=== PATIENT | female | born 1945 | race Caucasian/White ===

== ENCOUNTER 2016-11-18 16:23 | Inpatient (IN) | payer OTHER ==
[~2016-11-18] VITALS: Ht 157.5 cm; Wt 71.3 kg
[2016-11-18] MEDS ORDERED: CHOL400C10 (16:38)
[2016-11-18] MEDS ORDERED: NITR-5 PO (16:38)
[2016-11-18] MEDS ORDERED: VNTHFA/IN INH (16:38)
[2016-11-18] MEDS ORDERED: CALC600T9 (16:38)
[2016-11-18] MEDS ORDERED: MULTTAB58 PO (16:38)
[2016-11-18 17:03] LABS: BASO % 0.7 %; BASO ABS # 0.05 K/uL (0-0.2); COMPLETE YES; EOS % 0.8 %; HEMATOCRIT 42.2 % (37-47); IG% 0.3 %; LYMPH % 22.8 %; LYMPH ABS # 1.66 K/uL (1.2-3.4); MEAN CELL VOLUME 87.9 fL (80-100); MEAN CORPUSCULAR HEMOGLOBIN 29.6 pg (25-34); MEAN CORPUSCULAR HGB CONC 33.6 g/dl (32-36); MEAN PLATELET VOLUME 9.8 fL (7.4-10.4); MONO % 7.6 %; NEUT % 67.8 %; PLATELET COUNT 273 K/uL (130-400); WHITE BLOOD COUNT 7.28 K/uL (4.8-10.8)
[2016-11-18 17:23] LABS: BUN/CREATININE RATIO 19.9 (10-20); CALCIUM 8.9 mg/dl (8.5-10.1); CREATININE 0.65 mg/dl (0.60-1.20); POTASSIUM 3.3 mmol/L (3.5-5.1)
--- NOTE | 2016-11-18 17:23 | DIAGNOSTIC IMAGING REPORT ---
CHEST ONE VIEW PORTABLE CLINICAL HISTORY: Shortness of breath. Ankle swelling. COMPARISON STUDY: No previous studies for comparison. FINDINGS: The heart is mildly enlarged. There is no overt failure. There is no lobar consolidation. Slight indistinctness left hemidiaphragm likely secondary to a combination of fat pad and atelectatic change.[ There are no significant pleural effusions. IMPRESSION: AP portable study. Mild cardiomegaly. Electronically signed by: Gianfranco Weller M.D. 11/18/2016 5:21 PM Dictated Date/Time: 11/18/2016 5:21 PM
[2016-11-18 17:38] LABS: CKMB/CK RATIO 4.4 (0-3.0); THYROID STIMULATING HORMONE 0.843 uIu/ml (0.300-4.500)
[2016-11-18] MEDS ORDERED: FUROSEMIDE 40 MG/4 ML VIAL IV STA (17:43)
[2016-11-18] MEDS ORDERED: ASPIRIN 81 MG CHEW PO STA (17:43)
[2016-11-18] MEDS ORDERED: NITROGLYCERIN OINT 2% 1GM PACKET EXT ONE (17:45)
[2016-11-18] MEDS ORDERED: ONDANSETRON INJ 2 MG/ML 2 ML VIAL IV PRN (19:00)
[2016-11-18] MEDS ORDERED: NITROGLYCERIN 0.4 MG SL PER TAB CHARGE SL PRN (19:00)
[2016-11-18] MEDS ORDERED: POTASSIUM CHLORIDE 10 MEQ TABCR PO STA (19:15)
[2016-11-18 19:32] LABS: URINE APPEARANCE CLEAR (CLEAR); URINE BILIRUBIN NEG (NEG); URINE COLOR YELLOW; URINE NITRITE NEG (NEG); URINE SPECIFIC GRAVITY 1.016 (1.000-1.030); UROBILINOGEN NEG (NEG)
[2016-11-18 19:33] LABS: MANUAL MICROSCOPIC REQUIRED? NO; REVIEW REQ? NO
--- NOTE | 2016-11-18 19:55 | EMERGENCY ROOM VISIT NOTE ---
History Report prepared by Quentin: Della Bourgeois Under the Supervision of: Dr. Eladio Jo M.D. First contact with patient: 16:33 Chief Complaint: ABNORMAL LABS Stated Complaint: ABNORMAL LABS, SWOLLEN ANKLES, TIRED, SOB History of Present Illness The patient is a 71 year old female who presents to the Emergency Room with complaints of abnormal lab work. She reports she recently had an echocardiogram and her ejection fracture was found to be very low at 10%. Her PCP, Dr. Sanford with [facility], became concerned about heart failure and referred her here to the ED today. The patient admits to swelling in her legs and increased shortness of breath and fatigue. She notes she was placed on an antibiotic this past Monday, 3 days ago, for a UTI. Pt denies LOC, headache, fevers, chills, diaphoresis, visual changes, neck pain, chest pain, nausea, vomiting, abdominal pain, back pain, melena, hematochezia, urinary symptoms, numbness, weakness, lymphadenopathy, rash, or other complaints. 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 A total of ten systems were reviewed and were otherwise negative. Past Medical & Surgical Medical Problems: (1) Asthma (2) Elevated troponin I level (3) SOB (shortness of breath) Social History Smoking Status: Former Smoker Alcohol Use: occasionally Drug Use: none Marital Status: Housing Status: lives with family Occupation Status: retired Current/Historical Medications Scheduled Albuterol Hfa (Ventolin Hfa), 2-4 PUFFS INH Q6H Multiple Vitamin (Multivitamin), 1 TAB PO DAILY Nitrofurantoin Monohyd Macrocr (Macrobid), 100 MG PO BID Miscellaneous Medications Calcium Carbonate-Vitamin D (Calcium + D) Cholecalciferol (Vitamin D 400) Allergies Coded Allergies: No Known Allergies (Unverified , 11/18/16) Physical Exam Vital Signs Date Time Temp Pulse Resp B/P (MAP) Pulse Ox O2 Delivery O2 Flow Rate FiO2 11/18/16 19:45 101 22 143/103 96 Room Air 11/18/16 19:08 111 20 136/103 92 Room Air 11/18/16 18:20 101 16 137/100 94 Room Air 11/18/16 18:05 102 22 134/102 94 Room Air 11/18/16 17:29 102 11/18/16 17:15 100 18 135/86 93 Room Air 11/18/16 16:51 96 Room Air 11/18/16 16:27 36.3 114 17 148/103 96 Room Air Physical Exam GENERAL: Awake, alert, well-appearing, in no distress HENT: Normocephalic, atraumatic. Oropharynx unremarkable. EYES: Normal conjunctiva. Sclera non-icteric. NECK: Supple. No nuchal rigidity. FROM. No JVD. RESPIRATORY: Clear to auscultation. CARDIAC: Tachycardic heart rate, normal rhythm. Extremities warm and well perfused. Pulses equal. ABDOMEN: Soft, non-distended. No tenderness to palpation. No rebound or guarding. No masses. RECTAL: Deferred. MUSCULOSKELETAL: Chest examination reveals no tenderness. The back is symmetrical on inspection without obvious abnormality. There is no CVA tenderness to palpation. No joint edema. LOWER EXTREMITIES: Calves are equal size bilaterally and non-tender. 1+ pedal edema in bilateral lower extremities. No discoloration. NEURO: Normal sensorium. No sensory or motor deficits noted. SKIN: No rash or jaundice noted. Medical Decision & Procedures ER Provider Diagnostic Interpretation: Radiology results as stated below per my review and radiologist interpretation: CHEST ONE VIEW PORTABLE CLINICAL HISTORY: Shortness of breath. Ankle swelling. COMPARISON STUDY: No previous studies for comparison. FINDINGS: The heart is mildly enlarged. There is no overt failure. There is no lobar consolidation. Slight indistinctness left hemidiaphragm likely secondary to a combination of fat pad and atelectatic change. There are no significant pleural effusions. IMPRESSION: AP portable study. Mild cardiomegaly. Electronically signed by: Gianfranco Weller M.D. 11/18/2016 5:21 PM Laboratory Results 11/18/16 16:47 Red Blood Count 4.80, Mean Corpuscular Volume 87.9, Mean Corpuscular Hemoglobin 29.6, Mean Corpuscular Hemoglobin Concent 33.6, Mean Platelet Volume 9.8, Neutrophils (%) (Auto) 67.8, Lymphocytes (%) (Auto) 22.8, Monocytes (%) (Auto) 7.6, Eosinophils (%) (Auto) 0.8, Basophils (%) (Auto) 0.7, Neutrophils # (Auto) 4.94, Lymphocytes # (Auto) 1.66, Monocytes # (Auto) 0.55, Eosinophils # (Auto) 0.06, Basophils # (Auto) 0.05 11/18/16 16:47 Test 11/18/16 16:47 11/18/16 19:10 White Blood Count 7.28 K/uL (4.8-10.8) Red Blood Count 4.80 M/uL (4.2-5.4) Hemoglobin 14.2 g/dL (12.0-16.0) Hematocrit 42.2 % (37-47) Mean Corpuscular Volume 87.9 fL (80-100) Mean Corpuscular Hemoglobin 29.6 pg (25-34) Mean Corpuscular Hemoglobin Concent 33.6 g/dl (32-36) Platelet Count 273 K/uL (130-400) Mean Platelet Volume 9.8 fL (7.4-10.4) Neutrophils (%) (Auto) 67.8 % Lymphocytes (%) (Auto) 22.8 % Monocytes (%) (Auto) 7.6 % Eosinophils (%) (Auto) 0.8 % Basophils (%) (Auto) 0.7 % Neutrophils # (Auto) 4.94 K/uL (1.4-6.5) Lymphocytes # (Auto) 1.66 K/uL (1.2-3.4) Monocytes # (Auto) 0.55 K/uL (0.11-0.59) Eosinophils # (Auto) 0.06 K/uL (0-0.5) Basophils # (Auto) 0.05 K/uL (0-0.2) RDW Standard Deviation 45.2 fL (36.4-46.3) RDW Coefficient of Variation 14.1 % (11.5-14.5) Immature Granulocyte % (Auto) 0.3 % Immature Granulocyte # (Auto) 0.02 K/uL (0.00-0.02) Anion Gap 8.0 mmol/L (3-11) Est Creatinine Clear Calc Drug Dose 75.1 ml/min Estimated GFR () 103.5 Estimated GFR (Non- 89.3 BUN/Creatinine Ratio 19.9 (10-20) Calcium Level 8.9 mg/dl (8.5-10.1) Total Bilirubin 0.5 mg/dl (0.2-1) Aspartate Amino Transf (AST/SGOT) 16 U/L (15-37) Alanine Aminotransferase (ALT/SGPT) 27 U/L (12-78) Alkaline Phosphatase 88 U/L (45-117) Total Creatine Kinase 150 U/L (26-192) Creatine Kinase MB 6.6 ng/ml (0.5-3.6) Creatine Kinase MB Ratio 4.4 (0-3.0) Troponin I 0.131 ng/ml (0-0.045) Pro-B-Type Natriuretic Peptide 90242 pg/ml (0-900) Total Protein 6.7 gm/dl (6.4-8.2) Albumin 3.3 gm/dl (3.4-5.0) Globulin 3.4 gm/dl (2.5-4.0) Albumin/Globulin Ratio 1.0 (0.9-2) Thyroid Stimulating Hormone (TSH) 0.843 uIu/ml (0.300-4.500) Urine Color YELLOW Urine Appearance CLEAR (CLEAR) Urine pH 5.0 (4.5-7.5) Urine Specific [place] 1.016 (1.000-1.030) Urine Protein TRACE (NEG) Urine Glucose (UA) NEG (NEG) Urine Ketones NEG (NEG) Urine Occult Blood NEG (NEG) Urine Nitrite NEG (NEG) Urine Bilirubin NEG (NEG) Urine Urobilinogen NEG (NEG) Urine Leukocyte Esterase NEG (NEG) Urine WBC (Auto) 1-5 /hpf (0-5) Urine RBC (Auto) 0-4 /hpf (0-4) Urine Hyaline Casts (Auto) 1-5 /lpf (0-5) Urine Epithelial Cells (Auto) 10-20 /lpf (0-5) Urine Bacteria (Auto) NEG (NEG) Laboratory results reviewed by me Medications Administered Medications (Trade) Dose Ordered Sig/Juliana Route Start Time Stop Time Status Last Admin Dose Admin Nitroglycerin (Nitroglycerin 2% Oint) 0.5 inch NOW ONCE EXT 11/18/16 17:45 11/18/16 17:46 DC 11/18/16 18:07 0.5 INCH Furosemide (Lasix Inj) 20 mg NOW STAT IV 11/18/16 17:43 11/18/16 17:44 DC 11/18/16 18:07 20 MG Aspirin (Aspirin Chew) 324 mg NOW STAT PO 11/18/16 17:43 11/18/16 17:44 DC 11/18/16 18:07 324 MG Potassium Chloride (Klor-Con M10) 40 meq NOW STAT PO 11/18/16 19:15 11/18/16 19:16 DC 11/18/16 19:33 40 MEQ ECG Indication: SOB/dyspnea Rate (beats per minute): 103 Rhythm: sinus tachycardia Findings: nonspecific-ST abn, no acute ischemic change, left axis deviation ED Course 163: The patient was evaluated in room C7. A complete history and physical exam was performed. 174: Aspirin 324 mg PO, Lasix 20 mg IV. 1744: Nitroglycerin 2% 0.5 inch EXT. 1750: I reevaluated the patient. I discussed my recommendation she remain in the hospital for further evaluation and management and she verbalized complete understanding and agreement. 1755: I discussed the patients case with Annamarie [facility] PA-C, [facility]. The patient will be further evaluated. Medical Decision Triage Nursing notes reviewed. The patient's presentation and history were concerning for SOB. Etiologies such as CHF, cardiac ischemia, pneumonia, COPD, reactive airway disease, pulmonary embolism, pneumothorax, musculoskeletal, infections, gastrointestinal, as well as others were entertained. The patient was evaluated. She noted having recent outpatient echo that showed an EF of 10%. Laboratory testing was performed. Clinically she was doing relatively well except for mild tachycardia. The patient had an unremarkable CBC and chemistry panel. Her BNP is significantly elevated concerning for CHF. Chest x-ray as above. No skin was noted on ECG however the patient's cardiac markers were elevated. She was given aspirin, nitroglycerin, and Lasix. She was reassessed. She was educated. Consultation was made with internal medicine. The patient was evaluated in the Emergency Room and admitted for further management. Medication Reconcilliation Current Medication List: was personally reviewed by me Consults Time Called: 1751 Consulting Physician: Annamarie Stewart PA-C, [facility] Returned Call: 1755 I discussed the patients case with Annamarie Stewart PA-C, [facility]. The patient will be further evaluated. Impression Primary Impression: Acute CHF Additional Impression: Elevated troponin Scribe Attestation The scribe's documentation has been prepared under my direction and personally reviewed by me in its entirety. I confirm that the note above accurately reflects all work, treatment, procedures, and medical decision making performed by me. Departure Information Dispostion Being Evaluated By Hospitalist Referrals Kimani Sanford M.D. (PCP) Patient Instructions [facility] Problem Qualifiers
--- NOTE | 2016-11-18 20:14 | History and Physical ---
History & Physical Date & Time of Service: Nov 18, 2016 at 20:04 Chief Complaint: Abnormal Labs, Swollen Ankles, Tired, Sob Primary Care Physician: Kimani Sanford M.D. History of Present Illness Source: patient This is a 71yo with PMH of cardiomegaly, dyslipidemia and tobacco use disorder who presents from PCP for abnormal labwork and echo results. Patient was evaluated for SOB, fatigue and swollen ankles x 1 week. Had echo performed this morning and EF was reported to be very low at 10%. BNP elevated to 11,000. Per chart review, manufacturing quality technician reported the finding to patient's PCP and patient was told to come to the ER for further evaluation. Patient had a previous echo performed in Mar 2014 with an EF of 40% with mild LV dysfunction but was not started on medication or given a formal diagnosis of CHF. Denies history of heart disease, HTN, DM II. Endorses SOB at rest, ankle swelling and extreme fatigue. Denies lightheadedness , headache, CP, orthopnea, PND, abd pain, nausea/vomiting or weakness. Denies any weight gain in the past few weeks. Patient was seen this past Monday for dysuria and was diagnosed with a UTI. Has completed 4/7 days of PO Macrobid. Social History Smoking Status: Former Smoker (56 pack years. Quit last month. ) Alcohol Use: none Drug Use: none Marital Status: Occupational Status: retired Allergies Coded Allergies: No Known Allergies (Unverified , 11/18/16) Home Medications Scheduled Albuterol Hfa (Ventolin Hfa), 2-4 PUFFS INH Q6H Multiple Vitamin (Multivitamin), 1 TAB PO DAILY Nitrofurantoin Monohyd Macrocr (Macrobid), 100 MG PO BID Miscellaneous Medications Calcium Carbonate-Vitamin D (Calcium + D) Cholecalciferol (Vitamin D 400) Review of Systems Ten systems reviewed and negative except as noted in the HPI. Physical Exam Vital Signs Date Time Temp Pulse Resp B/P (MAP) Pulse Ox O2 Delivery O2 Flow Rate FiO2 11/18/16 19:45 101 22 143/103 96 Room Air 11/18/16 19:08 111 20 136/103 92 Room Air 11/18/16 18:20 101 16 137/100 94 Room Air 11/18/16 18:05 102 22 134/102 94 Room Air 11/18/16 17:29 102 11/18/16 17:15 100 18 135/86 93 Room Air 11/18/16 16:51 96 Room Air 11/18/16 16:27 36.3 114 17 148/103 96 Room Air General Appearance: WD/WN, no apparent distress Head: normocephalic, atraumatic Eyes: normal inspection, PERRL, sclerae normal ENT: hearing grossly normal Neck: supple, no adenopathy, no JVD, trachea midline Respiratory/Chest: chest non-tender, no respiratory distress, no accessory muscle use, + crackles (coarse breath sounds at bilateral bases) Cardiovascular: no murmur, normal peripheral pulses, + tachycardia Abdomen/GI: normal bowel sounds, non tender, soft, no organomegaly Back: normal inspection Extremities/Musculoskelatal: normal inspection, no calf tenderness, normal capillary refill, + swelling (2+ pedal/ankle edema bilaterally, trace pretibial edema bilaterally ) Neurologic/Psych: alert, normal mood/affect, normal reflexes Skin: normal color, warm/dry, no rash Diagnostics Laboratory Results Results Past 24 Hours Test 11/18/16 16:47 11/18/16 19:10 Range/Units White Blood Count 7.28 4.8-10.8 K/uL Red Blood Count 4.80 4.2-5.4 M/uL Hemoglobin 14.2 12.0-16.0 g/dL Hematocrit 42.2 37-47 % Mean Corpuscular Volume 87.9 80-100 fL Mean Corpuscular Hemoglobin 29.6 25-34 pg Mean Corpuscular Hemoglobin Concent 33.6 32-36 g/dl Platelet Count 273 130-400 K/uL Mean Platelet Volume 9.8 7.4-10.4 fL Neutrophils (%) (Auto) 67.8 % Lymphocytes (%) (Auto) 22.8 % Monocytes (%) (Auto) 7.6 % Eosinophils (%) (Auto) 0.8 % Basophils (%) (Auto) 0.7 % Neutrophils # (Auto) 4.94 1.4-6.5 K/uL Lymphocytes # (Auto) 1.66 1.2-3.4 K/uL Monocytes # (Auto) 0.55 0.11-0.59 K/uL Eosinophils # (Auto) 0.06 0-0.5 K/uL Basophils # (Auto) 0.05 0-0.2 K/uL RDW Standard Deviation 45.2 36.4-46.3 fL RDW Coefficient of Variation 14.1 11.5-14.5 % Immature Granulocyte % (Auto) 0.3 % Immature Granulocyte # (Auto) 0.02 0.00-0.02 K/uL Sodium Level 140 136-145 mmol/L Potassium Level 3.3 3.5-5.1 mmol/L Chloride Level 107 98-107 mmol/L Carbon Dioxide Level 25 21-32 mmol/L Anion Gap 8.0 3-11 mmol/L Blood Urea Nitrogen 13 7-18 mg/dl Creatinine 0.65 0.60-1.20 mg/dl Est Creatinine Clear Calc Drug Dose 75.1 ml/min Estimated GFR () 103.5 Estimated GFR (Non- 89.3 BUN/Creatinine Ratio 19.9 10-20 Random Glucose 116 70-99 mg/dl Calcium Level 8.9 8.5-10.1 mg/dl Total Bilirubin 0.5 0.2-1 mg/dl Aspartate Amino Transf (AST/SGOT) 16 15-37 U/L Alanine Aminotransferase (ALT/SGPT) 27 12-78 U/L Alkaline Phosphatase 88 45-117 U/L Total Creatine Kinase 150 26-192 U/L Creatine Kinase MB 6.6 0.5-3.6 ng/ml Creatine Kinase MB Ratio 4.4 0-3.0 Troponin I 0.131 0-0.045 ng/ml Pro-B-Type Natriuretic Peptide 33537 0-900 pg/ml Total Protein 6.7 6.4-8.2 gm/dl Albumin 3.3 3.4-5.0 gm/dl Globulin 3.4 2.5-4.0 gm/dl Albumin/Globulin Ratio 1.0 0.9-2 Thyroid Stimulating Hormone (TSH) 0.843 0.300-4.500 uIu/ml Urine Color YELLOW Urine Appearance CLEAR CLEAR Urine pH 5.0 4.5-7.5 Urine Specific [place] 1.016 1.000-1.030 Urine Protein TRACE NEG Urine Glucose (UA) NEG NEG Urine Ketones NEG NEG Urine Occult Blood NEG NEG Urine Nitrite NEG NEG Urine Bilirubin NEG NEG Urine Urobilinogen NEG NEG Urine Leukocyte Esterase NEG NEG Urine WBC (Auto) 1-5 0-5 /hpf Urine RBC (Auto) 0-4 0-4 /hpf Urine Hyaline Casts (Auto) 1-5 0-5 /lpf Urine Epithelial Cells (Auto) 10-20 0-5 /lpf Urine Bacteria (Auto) NEG NEG Diagnostic Radiology CXR: IMPRESSION: AP portable study. Mild cardiomegaly. EKG Sinus tachycardia Possible Left atrial enlargement poor R-wave progression in the precordial leads Nonspecific ST and T wave abnormality No prior EKG available Impression Assessment and Plan This is a 71yo with PMH of cardiomegaly, dyslipidemia and tobacco use disorder who presents from PCP for abnormal lab work and echo results. Decompensated new onset CHF: -SOB, fatigue and LE swelling x 1 week -No previous diagnosis of CHF on record, just cardiomegaly -Reported echo with EF of 10% today (report not yet available) -Mar 2014 echo with EF of 40%, mild LV dysfunction -BNP elevated to 11,000 -CXR with mild cardiomegaly, no overt heart failure -Given IV Lasix 20mg in ER. Continue IV Lasix BID -Start Lisinopril 2.5mg -Scheduled potassium chloride 10mEq BID with janet inhibitor, Lasix -Plan to start beta stephon once HF is compensated -Cardio consult placed. Appreciate recs -Daily weights, low Na diet HTN: -No former diagnosis -BP elevated to 148/103 on admission -Given 0.5 inch nitro paste, IV Lasix in ER -Started on Lisinopril 2.5mg daily; titrate accordingly -Monitor Elevated troponin: -No chest pain, unlikely ACS -Troponin I bumped to 0.131 -Given 324mg aspirin in ER -Continue trending cardiac markers -EKG with sinus tachycardia, possible L atrial enlargement, poor R-wave progression in precordial leads non-specific ST and T wave abnormality -No previous EKGs on record -Repeat EKG in AM -Monitor on tele HLD: -Previously diagnosed with HLD but not on statin -Fasting lipid panel in AM Hypokalemia: -K of 3.3 on admission -Replaced with 40mEq -Repeat BMP in AM UTI: -Symptoms have improved -On day 4/7 of Macrobid antibiotic -Continue antibiotic course DVT Ppx: Lovenox Code status: DNR as per discussion with patient and her PCP: [facility] Dispo: Plan to return home once medically stable Level of Care Telemetry Resuscitation Status DO NOT RESUSCITATE VTE Prophylaxis VTE Risk Assessment Done? Y/N: Yes Risk Level: Moderate Given or contraindicated: Enoxaparin (Lovenox)SQ Social Service Consult None Apply Note ATTENDING ADDENDUM Record reviewed. Patient interviewed and examined in ED. Care coordinated with Annamarie Stewart PA-C. Please refer to her documentation for patient's history. Briefly, 71 YO female with progressive dyspnea and lower extremity edema. Outpatient echo reportedly demonstrated LVEF 10%. Referred for further evaluation and management. EXAM: General- no acute distress VS- as noted HEENT- anicteric Neck- + JVD Lungs- bibasilar rales Heart- RRR, apical s3, no murmur appreciated Abdomen- + BS, soft, nontender Extremities- 1+ pretibial edema; no calf tenderness Neuro- alert, oriented DATA: BNP 11,530. CPK 150. CPK-MB 6.6. Troponin 0.131. TSH 0.843. Other lab studies as noted. Chest x-ray reviewed by undersigned and demonstrated cardiomegaly, mild pulmonary vascular congestion. EKG performed at 17:[address] at 103 / minute, poor R- wave progression, [id number]'s. . ASSESSMENT AND PLAN: New onset CHF- acute left ventricular systolic heart failure. LVEF reportedly 10% per outpatient echo (final report pending). Underlying pathophysiology to be determined. Received IV furosemide in ED which will be continued. Start low dose lisinopril. Start carvedilol. Consult Cardiology. Please refer to STEVE Stewart's documentation for discussion of other issues. Eladio Valente MD
[2016-11-18 21:00] VITALS: BP 147/93; PULSE 110; TEMP 36.7; O2SAT 95
[2016-11-18 21:04] VITALS: BP 147/93; PULSE 110; TEMP 36.7; O2SAT 95; Ht 157.5 cm; Wt 71.3 kg
[2016-11-18] MEDS: LISINOPRIL 2.5 MG TAB PO SCH (21:11)
[2016-11-18] MEDS: NITROFURANTOIN MONOHYDRATE 100 MG CAP PO SCH (21:11)
[2016-11-19] VITALS (7 sets, daily range): BP systolic 96–142; BP diastolic 62–90; PULSE 70–98; TEMP 36.7–37; O2SAT 90–96
[2016-11-19 06:10] LABS: HEMATOCRIT 41.3 % (37-47); MEAN CELL VOLUME 90.4 fL (80-100); MEAN CORPUSCULAR HEMOGLOBIN 28.9 pg (25-34); PLATELET COUNT 249 K/uL (130-400); RED BLOOD COUNT 4.57 M/uL (4.2-5.4); WHITE BLOOD COUNT 6.53 K/uL (4.8-10.8)
[2016-11-19 06:36] LABS: INR 1.1 (0.9-1.1); PROTHROMBIN TIME (PATIENT) 11.5 SECONDS (9.0-12.0)
[2016-11-19 06:39] LABS: BUN/CREATININE RATIO 19.5 (10-20); CALCIUM 8.8 mg/dl (8.5-10.1); CREATININE 0.65 mg/dl (0.60-1.20); POTASSIUM 3.5 mmol/L (3.5-5.1)
[2016-11-19 06:50] LABS: CKMB/CK RATIO 3.4 (0-3.0)
[2016-11-19] MEDS: LISINOPRIL 2.5 MG TAB PO SCH (08:23)
[2016-11-19] MEDS: NITROFURANTOIN MONOHYDRATE 100 MG CAP PO SCH ×2 (08:23→20:34)
[2016-11-19] MEDS: ASPIRIN 81 MG ECTAB PO SCH (08:23)
[2016-11-19] MEDS: MAGNESIUM SULFATE 1GM / D5W 1 GM in PREMIXED IN D5W 100 ML IV SCH ×2 (08:24→10:35)
[2016-11-19] MEDS: POTASSIUM CHLORIDE 10 MEQ TABCR PO SCH ×2 (08:24→20:34)
[2016-11-19] MEDS: POTASSIUM CHLR 10 MEQ / WTR 10 MEQ in PREMIXED WATER 100 ML IV SCH ×2 (08:25→10:35)
[2016-11-19] MEDS: CARVEDILOL 3.125 MG TAB PO SCH ×2 (08:26→20:33)
[2016-11-19] MEDS: ENOXAPARIN 40 MG/0.4 ML SYR SC SCH (08:26)
--- NOTE | 2016-11-19 08:26 | Progress Note ---
Subjective Date of Service: Nov 19, 2016. Subjective Pt evaluation today including: conversation w/ patient, physical exam, lab review, review of studies, review of inpatient medication list Saw/examined the patient in room 287 Presented to her primary care doctor due to dyspnea on exertion and edema of the bilateral ankles had an echo done as an outpatient, noted to have LVEF of 10% Was sent here, had some diuretics and states she feels much better Breathing improved while at rest, ankle edema has subsided Denies chest pain; has had palpitations in the past, but none recently Problem List Medical Problems: (1) Acute CHF Status: Acute (2) Elevated troponin Status: Acute Review of Systems Constitutional: No fever, No chills Respiratory: + shortness of breath, + dyspnea on exertion (improving), No cough , No sputum, No wheezing, No dyspnea at rest, No hemoptysis Cardiac: + edema, No chest pain, No palpitations (intermittent, none recently) Abdomen: No pain, No nausea, No vomiting, No diarrhea Medications Current Inpatient Medications Medications (Trade) Dose Ordered Sig/Juliana Route Start Time Stop Time Status Last Admin Dose Admin Acetaminophen (Tylenol Tab) 650 mg Q4H PRN PO 11/18/16 19:00 12/18/16 18:59 Ondansetron HCl (Zofran Inj) 4 mg Q6H PRN IV 11/18/16 19:00 12/18/16 18:59 Nitroglycerin (Nitrostat Tab) 0.4 mg UD PRN SL 11/18/16 19:00 12/18/16 18:59 Aspirin (Ecotrin Tab) 81 mg QAM PO 11/19/16 09:00 12/19/16 08:59 11/19/16 08:23 81 MG Nitrofurantoin Macrocrystals (Macrobid Cap) 100 mg BID PO 11/18/16 21:00 11/23/16 20:59 11/19/16 08:23 100 MG Lisinopril (Zestril Tab) 2.5 mg QAM PO 11/18/16 19:15 12/18/16 19:14 11/19/16 08:23 2.5 MG Potassium Chloride (Klor-Con M10) 10 meq BID PO 11/19/16 09:00 12/19/16 08:59 11/19/16 08:24 10 MEQ Furosemide 20 mg/ Syringe 2 ml @ 4 mls/min BID@0900,1500 IV 11/19/16 09:00 12/19/16 08:59 11/19/16 08:27 4 MLS/MIN Enoxaparin Sodium (Lovenox Inj) 40 mg Q24H SC 11/19/16 09:00 12/19/16 08:59 Carvedilol (Coreg Tab) 3.125 mg BID PO 11/19/16 09:00 12/19/16 08:59 11/19/16 08:26 3.125 MG Potassium Chloride 10 meq/ Prmx 100 ml @ 100 mls/hr Q1H IV 11/19/16 08:00 11/19/16 09:59 11/19/16 08:25 100 MLS/HR Magnesium Sulfate 1 gm/Prmx 100 ml @ 100 mls/hr Q1H IV 11/19/16 08:00 11/19/16 09:59 11/19/16 08:24 100 MLS/HR Objective Vital Signs Date Time Temp Pulse Resp B/P (MAP) Pulse Ox O2 Delivery O2 Flow Rate FiO2 11/19/16 07:37 37.0 96 16 142/90 (107) 90 Room Air 11/19/16 04:42 36.9 98 20 125/82 (96) 95 Room Air 11/19/16 04:00 Room Air 11/19/16 00:00 Room Air 11/18/16 21:04 36.7 110 18 147/93 95 Room Air 11/18/16 21:00 36.7 110 18 147/93 (111) 95 Room Air 11/18/16 19:45 101 22 143/103 96 Room Air 11/18/16 19:08 111 20 136/103 92 Room Air 11/18/16 18:20 101 16 137/100 94 Room Air 11/18/16 18:05 102 22 134/102 94 Room Air 11/18/16 17:29 102 11/18/16 17:15 100 18 135/86 93 Room Air 11/18/16 16:51 96 Room Air 11/18/16 16:27 36.3 114 17 148/103 96 Room Air Physical Exam General Appearance: no apparent distress ENT: hearing grossly normal Respiratory/Chest: no respiratory distress, no accessory muscle use, + decreased breath sounds Cardiovascular: regular rate, rhythm, no murmur Extremities: + pedal edema (+1 pitting edema, b/l LE; around ankles), + pertinent finding Neurologic/Psychiatric: no motor/sensory deficits, alert, normal mood/affect Skin: normal color Lymphatic: no adenopathy Laboratory Results Last 24 Hours Test 11/18/16 16:47 11/18/16 19:10 11/19/16 05:34 11/19/16 07:38 White Blood Count 7.28 K/uL 6.53 K/uL Red Blood Count 4.80 M/uL 4.57 M/uL Hemoglobin 14.2 g/dL 13.2 g/dL Hematocrit 42.2 % 41.3 % Mean Corpuscular Volume 87.9 fL 90.4 fL Mean Corpuscular Hemoglobin 29.6 pg 28.9 pg Mean Corpuscular Hemoglobin Concent 33.6 g/dl 32.0 g/dl Platelet Count 273 K/uL 249 K/uL Mean Platelet Volume 9.8 fL 10.0 fL Neutrophils (%) (Auto) 67.8 % Lymphocytes (%) (Auto) 22.8 % Monocytes (%) (Auto) 7.6 % Eosinophils (%) (Auto) 0.8 % Basophils (%) (Auto) 0.7 % Neutrophils # (Auto) 4.94 K/uL Lymphocytes # (Auto) 1.66 K/uL Monocytes # (Auto) 0.55 K/uL Eosinophils # (Auto) 0.06 K/uL Basophils # (Auto) 0.05 K/uL RDW Standard Deviation 45.2 fL 46.9 fL RDW Coefficient of Variation 14.1 % 14.3 % Immature Granulocyte % (Auto) 0.3 % Immature Granulocyte # (Auto) 0.02 K/uL Sodium Level 140 mmol/L 142 mmol/L Potassium Level 3.3 mmol/L 3.5 mmol/L Chloride Level 107 mmol/L 105 mmol/L Carbon Dioxide Level 25 mmol/L 30 mmol/L Anion Gap 8.0 mmol/L 7.0 mmol/L Blood Urea Nitrogen 13 mg/dl 13 mg/dl Creatinine 0.65 mg/dl 0.65 mg/dl Est Creatinine Clear Calc Drug Dose 75.1 ml/min 75.1 ml/min Estimated GFR () 103.5 103.5 Estimated GFR (Non- 89.3 89.3 BUN/Creatinine Ratio 19.9 19.5 Random Glucose 116 mg/dl 100 mg/dl Calcium Level 8.9 mg/dl 8.8 mg/dl Total Bilirubin 0.5 mg/dl Aspartate Amino Transf (AST/SGOT) 16 U/L Alanine Aminotransferase (ALT/SGPT) 27 U/L Alkaline Phosphatase 88 U/L Total Creatine Kinase 150 U/L 88 U/L Creatine Kinase MB 6.6 ng/ml 3.0 ng/ml Creatine Kinase MB Ratio 4.4 3.4 Troponin I 0.131 ng/ml 0.110 ng/ml Pro-B-Type Natriuretic Peptide 83761 pg/ml Total Protein 6.7 gm/dl Albumin 3.3 gm/dl Globulin 3.4 gm/dl Albumin/Globulin Ratio 1.0 Thyroid Stimulating Hormone (TSH) 0.843 uIu/ml Urine Color YELLOW Urine Appearance CLEAR Urine pH 5.0 Urine Specific [place] 1.016 Urine Protein TRACE Urine Glucose (UA) NEG Urine Ketones NEG Urine Occult Blood NEG Urine Nitrite NEG Urine Bilirubin NEG Urine Urobilinogen NEG Urine Leukocyte Esterase NEG Urine WBC (Auto) 1-5 /hpf Urine RBC (Auto) 0-4 /hpf Urine Hyaline Casts (Auto) 1-5 /lpf Urine Epithelial Cells (Auto) 10-20 /lpf Urine Bacteria (Auto) NEG Prothrombin Time 11.5 SECONDS Prothromb Time International Ratio 1.1 Triglycerides Level 98 mg/dl Cholesterol Level 167 mg/dl HDL Cholesterol 24 mg/dl LDL Cholesterol, Calculated 123 mg/dl VLDL Cholesterol, Calculated 20 mg/dl Cholesterol/HDL Ratio 7.0 Assessment and Plan This is a 71 year old female with a PMH of hyperlipidemia - was sent over to the ER due to low LVEF ~ 10% noted on outpatient echocardiogram New Onset, Decompensated Acute Systolic CHF Idiopathic Cardiomyopathy +swelling of the b/l ankles, had echo done as an outpatient LVEF ~ 10% as outpatient BNP elevated > 11,000 started on IV Lasix 20mg BID, low dose lisinopril and b-stephon cardiology consult pending for further input patient is a DNR at this point Elevated BP without Diagnosis of HTN patient presented with elevated BP does not take any medications as outpatient started on BLAS-I, b-stephon due to systolic CHF Elevated Troponin this is more likely due to her significantly diminished LVEF of 10% trend enzymes, which are trending down continue aspirin and b-stephon Possible UTI as per outpatient records, had been on Macrobid, to be on this for four more days DVT ppx Lovenox DNR
[2016-11-19] MEDS: FUROSEMIDE INJ 20 MG in SYRINGE 0 ML IV SCH ×2 (08:27→15:34)
--- NOTE | 2016-11-19 12:42 | CARDIOLOGY CONSULTATION ---
DATE OF CONSULTATION: 11/19/2016 DATE OF CONSULTATION: 11/19/2016 This is a consultation for the hospitalist service. REASON FOR CONSULTATION: Abnormal echocardiogram. HISTORY OF PRESENT ILLNESS: This is a 71-year-old female who expresses minimal past medical history. She is actually on no chronic medications. She does smoke cigarettes but states she stopped last week. Over the course of the past week to 10 days she has noticed increased fatigue with activity and lower extremity edema. She had an outpatient echocardiogram completed at [facility]. This study is not available to me, but the medical record would indicate that the patient has a severe cardiomyopathy with an estimated left ventricular ejection fraction of 10%. Reviewing some of the medical records, there is an old echocardiogram that was obtained several years ago that indicated a left ventricular ejection fraction of between 40% and 50%. She has had no chest pain. She has no prior history of coronary artery disease or myocardial infarction. She has been admitted and started on diuretics as well as an BLAS inhibitor and carvedilol. She is ambulating on her own and has no current complaints. ALLERGIES: No known medical allergies. PAST MEDICAL HISTORY: Is per the history of chief complaint. SOCIAL HISTORY: The patient stopped smoking last week. She lives independently. FAMILY MEDICAL HISTORY: Noncontributory. REVIEW OF SYSTEMS: A 10-point review of systems is negative except for the history of chief complaint. PHYSICAL EXAMINATION: GENERAL: She is alert and oriented. VITAL SIGNS: Blood pressure is 100/60, pulse is regular at 80 beats per minute. She is currently in a sinus mechanism. She is afebrile. HEAD, EYES, EARS, NOSE, AND THROAT: She is normocephalic. Pupils are equal and reactive to light. Extraocular muscles are intact bilaterally. NECK: The neck veins are flat. Carotids have good upstrokes bilaterally without bruits. Thyroid is nonpalpable. RESPIRATORY: Breath sounds equal bilaterally and clear to auscultation. CARDIOVASCULAR: Heart has a regular rhythm. Normal S1, S2. No S3, S4. No cardiac rubs or murmurs. GASTROINTESTINAL: Abdomen is soft, nontender without organomegaly. EXTREMITIES: Free of edema, digit clubbing, or cyanosis. NEUROLOGIC: Grossly intact. SKIN: Warm to touch. LYMPH NODES: Negative to palpation. LABORATORY DATA: Hemoglobin is 13.2. Potassium is 3.5, creatinine is 0.65. Troponin is 0.11. Cholesterol total was 167. TSH is 0.8. Pronatriuretic peptide is 11,500. IMPRESSIONS: 1. Congestive heart failure. 2. Idiopathic cardiomyopathy. 3. Cigarette smoking. RECOMMENDATIONS: I have ordered an echocardiogram to be completed here. I need to review this study to make better judgements regarding this patient. She is currently on a good medical regimen which should be continued for now and I will have further recommendations following the above.
[2016-11-19] MEDS: ACETAMINOPHEN 325 MG TAB PO PRN (15:34)
[2016-11-20] VITALS: BP 93/61; PULSE 84; TEMP 36.6; O2SAT 92
[2016-11-20 04:00] VITALS: BP 126/83; PULSE 87; TEMP 36.7; O2SAT 92
[2016-11-20 08:00] VITALS: O2SAT 94
[2016-11-20] MEDS: FUROSEMIDE INJ 20 MG in SYRINGE 0 ML IV SCH ×2 (08:32→14:50)
[2016-11-20] MEDS: ENOXAPARIN 40 MG/0.4 ML SYR SC SCH (08:32)
[2016-11-20] MEDS: CARVEDILOL 3.125 MG TAB PO SCH ×2 (08:33→20:34)
[2016-11-20] MEDS: NITROFURANTOIN MONOHYDRATE 100 MG CAP PO SCH ×2 (08:33→20:33)
[2016-11-20] MEDS: ASPIRIN 81 MG ECTAB PO SCH (08:33)
[2016-11-20] MEDS: LISINOPRIL 2.5 MG TAB PO SCH (08:33)
[2016-11-20] MEDS: POTASSIUM CHLORIDE 10 MEQ TABCR PO SCH ×2 (08:34→20:34)
--- NOTE | 2016-11-20 09:25 | ECHOCARDIOGRAM REPORT ---
*NOTICE TO RECEIVING [employer] This information is strictly Confidential and protected under [place] law. [place] law prohibits you from making any further disclosure of this information unless further disclosure is expressly permitted by the written consent of the person to whom it pertains or is authorized by law. A general authorization for the release of medical or other information is not sufficient for this purpose. Hospital accepts no responsibility if the information is made available to any other person, INCLUDING THE PATIENT. Interpretation Summary * Name: BABAK KUHN Study Date: 11/20/2016 06:50 AM BP: 96/62 mmHg * Patient Location: .[facility]\S\N287\S\2 HR: 87 * : 1945 (M/d/yyyy) Gender: Female Height: 62 in * Age: 71 yrs Ethnicity: [place] Weight: 161 lb * Ordering Physician: Lucas Gilbert * Referring Physician: Nicolás Moe PA-C * Performed By: Orlando Alvarez RCS * * Reason For Study: Cardiomyopathy * BSA: 1.7 m2 * -- Conclusions -- * The left ventricle is severely dilated. * Left ventricular systolic function is severely reduced. * Ejection Fraction = <15%. * The right ventricle is severely dilated. * The right ventricular systolic function is severely reduced. * The left atrium is severely dilated. * The right atrium is severely dilated. * There is mild mitral regurgitation. * There is moderate tricuspid regurgitation. Procedure Details * A complete two-dimensional transthoracic echocardiogram was performed (2D, M-mode, Doppler and color flow Doppler). Left Ventricle * The left ventricle is severely dilated. * There is no thrombus. * There is moderate concentric left ventricular hypertrophy. * Ejection Fraction = <15%. * Left ventricular systolic function is severely reduced. Right Ventricle * The right ventricle is severely dilated. * The right ventricular systolic function is severely reduced. Atria * The left atrium is severely dilated. * The right atrium is severely dilated. * The interatrial septum is intact with no evidence for an atrial septal defect. Mitral Valve * The mitral valve leaflets appear thickened, but open well. * There is mild mitral regurgitation. Tricuspid Valve * The tricuspid valve anatomy is normal. * There is moderate tricuspid regurgitation. Aortic Valve * The aortic valve is tricuspid. The leaflet thickness if normal. There is no aortic stenosis, and no significant insufficiency. * No hemodynamically significant valvular aortic stenosis. * There is no significant aortic regurgitation. Pulmonic Valve * The pulmonic valve is not well seen, but is grossly normal. * Mild pulmonic valvular regurgitation. Great Vessels * The aortic root and proximal ascending aorta are normal sized. Pericardium/Pleural * There is no pericardial effusion. MMode 2D Measurements and Calculations IVSd 1.0 cm IVSs 1.2 cm LVIDd 6.3 cm LVIDs 5.9 cm LVPWd 10 cm LVPWs 1.2 cm IVS/LVPW 1.0 FS 5.5 % EDV(Teich) 200.4 ml ESV(Teich) 176.3 ml EF(Teich) 12.0 % EDV(cubed) 248.7 ml ESV(cubed) 210.2 ml EF(cubed) 15.5 % % IVS thick 15.4 % % LVPW thick 20.7 % LV mass(C)d 272.7 grams LV mass(C)dI 156.4 grams/m\S\2 LV mass(C)s 308.6 grams LV mass(C)sI 177.1 grams/m\S\2 SV(Teich) 24.1 ml SI(Teich) 13.8 ml/m\S\2 SV(cubed) 38.5 ml SI(cubed) 22.1 ml/m\S\2 Ao root diam 2.8 cm Ao root area 6.2 cm\S\2 ACS 1.4 cm LA dimension 4.8 cm LA/Ao 1.7 Doppler Measurements and Calculations MV E max ana 110.7 cm/sec MV A max ana 66.1 cm/sec MV E/A 1.7 MV P1/2t max ana 113.9 cm/sec MV P1/2t 95.4 msec MVA(P1/2t) 2.3 cm\S\2 MV dec slope 349.8 cm/sec\S\2 MV dec time 0.18 sec Ao V2 max 101.6 cm/sec Ao max PG 4.1 mmHg Ao max PG (full) 1.6 mmHg LV V1 max PG 2.5 mmHg LV V1 max 79.6 cm/sec PA V2 max 66.2 cm/sec PA max PG 1.8 mmHg PI max ana 255.2 cm/sec PI max PG 26.1 mmHg PI dec slope 519.5 cm/sec\S\2 PI P1/2t 143.9 msec TR max ana 247.2 cm/sec
[2016-11-20 09:40] VITALS: BP 126/87; PULSE 75; TEMP 36.4; O2SAT 94
--- NOTE | 2016-11-20 11:25 | Progress Note ---
Subjective Date of Service: Nov 20, 2016. Subjective Pt evaluation today including: conversation w/ patient, physical exam, lab review, review of studies, review of inpatient medication list Saw/examined the patient in room 287 She's doing well, no breathing issues, denies chest pain/palpitations No other issues to note Problem List Medical Problems: (1) Acute CHF Status: Acute (2) Elevated troponin Status: Acute Review of Systems Respiratory: No cough, No sputum, No wheezing, No shortness of breath, No dyspnea on exertion Cardiac: + edema, No chest pain, No palpitations Medications Current Inpatient Medications Medications (Trade) Dose Ordered Sig/Juliana Route Start Time Stop Time Status Last Admin Dose Admin Acetaminophen (Tylenol Tab) 650 mg Q4H PRN PO 11/18/16 19:00 12/18/16 18:59 11/19/16 15:34 650 MG Ondansetron HCl (Zofran Inj) 4 mg Q6H PRN IV 11/18/16 19:00 12/18/16 18:59 Nitroglycerin (Nitrostat Tab) 0.4 mg UD PRN SL 11/18/16 19:00 12/18/16 18:59 Aspirin (Ecotrin Tab) 81 mg QAM PO 11/19/16 09:00 12/19/16 08:59 11/20/16 08:33 81 MG Nitrofurantoin Macrocrystals (Macrobid Cap) 100 mg BID PO 11/18/16 21:00 11/23/16 20:59 11/20/16 08:33 100 MG Lisinopril (Zestril Tab) 2.5 mg QAM PO 11/18/16 19:15 12/18/16 19:14 11/20/16 08:33 2.5 MG Potassium Chloride (Klor-Con M10) 10 meq BID PO 11/19/16 09:00 12/19/16 08:59 11/20/16 08:34 10 MEQ Furosemide 20 mg/ Syringe 2 ml @ 4 mls/min BID@0900,1500 IV 11/19/16 09:00 12/19/16 08:59 11/20/16 08:32 4 MLS/MIN Enoxaparin Sodium (Lovenox Inj) 40 mg Q24H SC 11/19/16 09:00 12/19/16 08:59 Carvedilol (Coreg Tab) 3.125 mg BID PO 11/19/16 09:00 12/19/16 08:59 11/20/16 08:33 3.125 MG Objective Vital Signs Date Time Temp Pulse Resp B/P (MAP) Pulse Ox O2 Delivery O2 Flow Rate FiO2 11/20/16 09:40 36.4 75 18 126/87 (100) 94 Room Air 11/20/16 08:00 94 Room Air 11/20/16 04:00 Room Air 11/20/16 04:00 36.7 87 18 126/83 (97) 92 Room Air 11/20/16 00:00 Room Air 11/20/16 00:00 36.6 84 18 93/61 (72) 92 Room Air 11/19/16 20:00 Room Air 11/19/16 19:38 36.7 78 18 112/72 (85) 96 Room Air 11/19/16 16:00 Room Air 11/19/16 15:39 36.9 87 16 96/62 (73) 90 Room Air 11/19/16 15:39 36.8 70 18 101/70 (80) 95 Room Air 11/19/16 12:00 90 Room Air 11/19/16 11:37 36.9 87 16 96/62 (73) 91 Room Air Physical Exam General Appearance: no apparent distress Respiratory/Chest: chest non-tender, lungs clear, normal breath sounds, no respiratory distress, no accessory muscle use Cardiovascular: regular rate, rhythm, no murmur Extremities: + pertinent finding (trace edema) Assessment and Plan This is a 71 year old female with a PMH of hyperlipidemia - was sent over to the ER due to low LVEF ~ 10% noted on outpatient echocardiogram New Onset, Decompensated Acute Systolic CHF Idiopathic Cardiomyopathy 11/20 echo shows LVEF < 15% continue b-stephon, BLAS-I, Lasix appreciate cardiology input 11/19 +swelling of the b/l ankles, had echo done as an outpatient LVEF ~ 10% as outpatient BNP elevated > 11,000 started on IV Lasix 20mg BID, low dose lisinopril and b-stephon cardiology consult pending for further input patient is a DNR at this point Elevated BP without Diagnosis of HTN patient presented with elevated BP does not take any medications as outpatient started on BLAS-I, b-stephon due to systolic CHF Elevated Troponin this is more likely due to her significantly diminished LVEF of 10% trend enzymes, which are trending down continue aspirin and b-stephon Possible UTI as per outpatient records, had been on Macrobid, to be on this for four more days DVT ppx Lovenox DNR
[2016-11-20 12:00] VITALS: BP 124/80; PULSE 94; TEMP 36.8; O2SAT 94
[2016-11-20] MEDS ORDERED: LISINOPRIL 2.5 MG TAB PO ONE (13:30)
--- NOTE | 2016-11-20 13:51 | PROGRESS NOTE ---
DATE: 11/20/2016 FOLLOWUP VISIT SUBJECTIVE: The patient is a 71-year-old female who presented with idiopathic cardiomyopathy and severe LV dysfunction. Her cardiomyopathy may be due to undertreated hypertension. She also has a history of cigarette smoking. Her echocardiogram this admission shows an estimated left ventricular ejection fraction of around 10%. We have been diuresing and slowly titrating medications, like carvedilol and an BLAS inhibitor. She has no complaints today. She did present with abdominal bloating and lower extremity edema, which is improving with diuretic therapy. OBJECTIVE: GENERAL: She is alert and oriented in no acute distress. VITAL SIGNS: Blood pressure is 125/80, pulse is regular at 75 beats per minute. She is afebrile. HEENT: She wears corrective lenses. Mucous membranes are moist. NECK: The neck veins are flat. Carotids have good upstrokes bilaterally without bruits. Thyroid is nonpalpable. RESPIRATORY: Breath sounds equal bilaterally and clear to auscultation. CARDIOVASCULAR: Heart has a regular rhythm. Normal S1 and S2. No S3 or S4. No cardiac rubs or murmurs. GASTROINTESTINAL: Abdomen is soft and nontender without organomegaly. EXTREMITIES: Free of edema, digit clubbing, or cyanosis. NEUROLOGIC: Grossly intact. SKIN: Warm to touch. LYMPH NODES: Negative to palpation. LABORATORY DATA: Hemoglobin is 13.2. Creatinine is 0.65 and potassium is 3.5. IMPRESSION: 1. Idiopathic cardiomyopathy. 2. Severe left ventricular dysfunction with an estimated left ventricular ejection fraction of 10%. 3. Acute on chronic systolic heart failure. RECOMMENDATIONS: As outlined above, we are titrating her medications. The patient by her own desire is a level 5 resuscitation. She is not interested in heroic measures and would not consider an ICD. [facility]
[2016-11-20 19:46] VITALS: BP 100/71; PULSE 86; TEMP 36.5; O2SAT 93
[2016-11-21] VITALS (8 sets, daily range): BP systolic 96–124; BP diastolic 60–83; PULSE 62–89; TEMP 36.5–37; O2SAT 91–98
[2016-11-21 06:18] LABS: MEAN CELL VOLUME 90.3 fL (80-100); MEAN CORPUSCULAR HEMOGLOBIN 29.1 pg (25-34); MEAN CORPUSCULAR HGB CONC 32.2 g/dl (32-36); MEAN PLATELET VOLUME 9.8 fL (7.4-10.4); PLATELET COUNT 246 K/uL (130-400); RED BLOOD COUNT 4.54 M/uL (4.2-5.4); WHITE BLOOD COUNT 6.77 K/uL (4.8-10.8)
[2016-11-21 06:57] LABS: BUN/CREATININE RATIO 22.6 (10-20); CALCIUM 9.3 mg/dl (8.5-10.1); CREATININE 0.68 mg/dl (0.60-1.20); MAGNESIUM 2.1 mg/dl (1.8-2.4); POTASSIUM 4.2 mmol/L (3.5-5.1)
[2016-11-21] MEDS: NITROFURANTOIN MONOHYDRATE 100 MG CAP PO SCH ×2 (08:41→21:33)
[2016-11-21] MEDS: FUROSEMIDE INJ 20 MG in SYRINGE 0 ML IV SCH ×2 (08:41→15:10)
[2016-11-21] MEDS: CARVEDILOL 3.125 MG TAB PO SCH ×2 (08:42→21:35)
[2016-11-21] MEDS: LISINOPRIL 5 MG TAB PO SCH (08:42)
[2016-11-21] MEDS: ASPIRIN 81 MG ECTAB PO SCH (08:42)
[2016-11-21] MEDS: POTASSIUM CHLORIDE 10 MEQ TABCR PO SCH ×2 (08:42→22:03)
[2016-11-21] MEDS: ENOXAPARIN 40 MG/0.4 ML SYR SC SCH (08:43)
--- NOTE | 2016-11-21 10:17 | Cardiology Follow-Up ---
Subjective General Date of Service: Nov 21, 2016. Chief Complaint: Fatigue Pt evaluation today including: conversation w/ patient, physical exam, chart review, lab review, review of studies, review of inpatient medication list History of Present Illness Patient seen and examined. Admitted with new onset acute decompensated systolic heart failure secondary to a dilated cardiomyopathy of unknown etiology. Patient notes considerable improvement in exertional fatigue and dyspnea as well as peripheral edema since admission. She remains dyspneic when ambulating the hallway. No chest pain. No palpitations. Mild orthopnea without PND I/O's are NOT accurately recorded. Weight is down since admission. Telemetry: Short run of SVT at 09:40:24. Three beat VPC run at 23:27:47. No significant bradycardia or pauses. November 20, 2016 TTE Interpretation Summary ([facility], Dr. Gilbert): The left ventricle is severely dilated. Left ventricular systolic function is severely reduced. Ejection Fraction = <15%. The right ventricle is severely dilated. The right ventricular systolic function is severely reduced. The left atrium is severely dilated. The right atrium is severely dilated. There is mild mitral regurgitation. There is moderate tricuspid regurgitation. Allergies Coded Allergies: No Known Allergies (Unverified , 11/18/16) Social History Smoking Status: Former Smoker Hx Tobacco Use In Past Year?: Yes Hx Alcohol Use - Type And Amou: No Hx Substance Use - Type And Am: No Problem List Medical Problems: (1) Acute CHF Status: Acute (2) Elevated troponin Status: Acute Physical Exam Vital Signs Last Vital Signs Documentation Date Time Temp Pulse Resp B/P (MAP) Pulse Ox O2 Delivery O2 Flow Rate FiO2 11/21/16 07:27 36.7 86 18 124/83 (97) 92 Room Air 11/21/16 00:01 Physical Exam Constitutional: General Apperance: heathly-appearing Level of Distress: NAD Ambulation: ambulating normally Psychiatric: Mental Status: active & alert Orientation: to time, to place, to person Memory: recent memory normal, remote memory normal Head: normocephalic, atraumatic Eyes: Pupils: PERRLA Neck: pertinent finding (Mildly elevated JVP) Lungs: Respiratory effort: no dyspnea Auscultation: no wheezing, no rhonchi, deminished air movement, decreased breath sounds, rales/crackles on the left, rales/crackles on the right Cardiovascular: Heart Auscultation: RRR (86 bpm), no murmurs, no rubs, no gallops Peripheral Pulses: Dorsalis Pedis Pulse: absent on the left, absent on the right Abdomen: Bowel Sounds: normal Inspection & Palpation: soft, non-distended, no tenderness, guarding & rebound, no masses Extremities: no cyanosis, no clubbing, edema (Minimal edema), varicosities Neurologic: Cranial Nerves: grossly intact Assessment and Plan Assessment and Plan New onset acute decompensated systolic congestive heart failure Severe dilated cardiomyopathy of unknown etiology. Ejection Fraction 10% Narrow QRS duration, 96 ms NYHA Functional Capacity Class III, Objective Assessment C Volume status: Mildly hypervolemic. RECOMMENDATIONS/PLAN: Discontinue IV furosemide after the 2nd dose today. Start oral furosemide, 40 mg/day, in the AM of 11/22/16. Discontinue potassium chloride. Start spironolactone 12.5 mg/day Continue Carvedilol for now though patient may be better served with Toprol XL given observed heart rates and what appears to be underlying obstructive pulmonary disease from longstanding tobacco abuse. Consider changing Lisinopril to Entresto (Sacubitril 24 mg, valsartan 26 mg twice daily) down the road, as an outpatient, after washing out Lisinopril for 36 hours. Pharmacological stress testing versus diagnostic cardiac catheterization discussed. She is not interested in a wearable cardioverter-defibrillator She tells me today that she would consider primary prevention ICD implantation. This would be after three months of optimal medical therapy with documentation of persistent left ventricular ejection fraction less than or equal to 35 percent at that time. Further recommendations pending the above, evaluation by Dr. Pulliam, and her ongoing hospitalization. CARDIOLOGY ATTENDING ADDENDUM: The patient was seen and personally examined. Agree with Nicolás Moe PA-C's findings and plans as documented above With additions as noted below. Subjective: Patient states she's been having shortness of breath with climbing stairs at home, feels better in the hospital, but still with some shortness of breath while walking. Telemetry reveals short salvos of nonsustained ventricular tachycardia with several 3 beat runs. Physical examination: Cardiac risk irregular rate, no murmurs Extremities: No edema Impression: 71-year-old female, newly diagnosed severe dilated cardiomyopathy. Plan: Medication therapy as outlined above, patient agreeable to proceeding with definitive coronary angiography during this hospital stay. Will make her nothing by mouth after midnight and tentatively schedule the procedure for tomorrow with Dr. Chao Laboratory Results Last 24 Hours Test 11/21/16 05:56 White Blood Count 6.77 K/uL Red Blood Count 4.54 M/uL Hemoglobin 13.2 g/dL Hematocrit 41.0 % Mean Corpuscular Volume 90.3 fL Mean Corpuscular Hemoglobin 29.1 pg Mean Corpuscular Hemoglobin Concent 32.2 g/dl RDW Standard Deviation 46.7 fL RDW Coefficient of Variation 14.3 % Platelet Count 246 K/uL Mean Platelet Volume 9.8 fL Sodium Level 140 mmol/L Potassium Level 4.2 mmol/L Chloride Level 102 mmol/L Carbon Dioxide Level 32 mmol/L Anion Gap 6.0 mmol/L Blood Urea Nitrogen 15 mg/dl Creatinine 0.68 mg/dl Est Creatinine Clear Calc Drug Dose 71.5 ml/min Estimated GFR () 102.0 Estimated GFR (Non- 88.0 BUN/Creatinine Ratio 22.6 Random Glucose 107 mg/dl Calcium Level 9.3 mg/dl Magnesium Level 2.1 mg/dl
[2016-11-21] MEDS: NICOTINE 14 MG/24 HR TDSY TD SCH (11:28)
--- NOTE | 2016-11-21 11:58 | Progress Note ---
Subjective Date of Service: Nov 21, 2016. Subjective Pt evaluation today including: conversation w/ patient, physical exam, lab review, review of studies, review of inpatient medication list Saw/examined the patient in room 287 She is doing okay, no chest pain/shortness of breath Stated she needed a nicotine patch because she just quit smoking about one week prior to arrival Otherwise, doing well Problem List Medical Problems: (1) Acute CHF Status: Acute (2) Elevated troponin Status: Acute Review of Systems Constitutional: No fever, No chills Respiratory: No cough, No sputum, No shortness of breath Cardiac: No chest pain Medications Current Inpatient Medications Medications (Trade) Dose Ordered Sig/Juliana Route Start Time Stop Time Status Last Admin Dose Admin Acetaminophen (Tylenol Tab) 650 mg Q4H PRN PO 11/18/16 19:00 12/18/16 18:59 11/19/16 15:34 650 MG Ondansetron HCl (Zofran Inj) 4 mg Q6H PRN IV 11/18/16 19:00 12/18/16 18:59 Nitroglycerin (Nitrostat Tab) 0.4 mg UD PRN SL 11/18/16 19:00 12/18/16 18:59 Aspirin (Ecotrin Tab) 81 mg QAM PO 11/19/16 09:00 12/19/16 08:59 11/21/16 08:42 81 MG Nitrofurantoin Macrocrystals (Macrobid Cap) 100 mg BID PO 11/18/16 21:00 11/23/16 20:59 11/21/16 08:41 100 MG Potassium Chloride (Klor-Con M10) 10 meq BID PO 11/19/16 09:00 11/21/16 23:00 11/21/16 08:42 10 MEQ Furosemide 20 mg/ Syringe 2 ml @ 4 mls/min BID@0900,1500 IV 11/19/16 09:00 11/21/16 23:00 11/21/16 08:41 4 MLS/MIN Enoxaparin Sodium (Lovenox Inj) 40 mg Q24H SC 11/19/16 09:00 12/19/16 08:59 Carvedilol (Coreg Tab) 3.125 mg BID PO 11/19/16 09:00 12/19/16 08:59 11/21/16 08:42 3.125 MG Lisinopril (Zestril Tab) 5 mg QAM PO 11/21/16 09:00 12/21/16 08:59 11/21/16 08:42 5 MG Nicotine (Nicoderm Cq 14MG Patch) 1 patch QAM TD 11/22/16 09:00 12/22/16 08:59 11/21/16 11:28 1 PATCH Miscellaneous (Remove Nicoderm Patch) 1 ea HS N/A 11/21/16 21:00 12/21/16 20:59 Furosemide (Lasix Tab) 40 mg QAM PO 11/22/16 09:00 12/22/16 08:59 UNV Spironolactone (Aldactone Tab) 12.5 mg QAM PO 11/22/16 09:00 12/22/16 08:59 UNV Objective Vital Signs Date Time Temp Pulse Resp B/P (MAP) Pulse Ox O2 Delivery O2 Flow Rate FiO2 11/21/16 11:34 36.5 62 18 104/73 (83) 98 11/21/16 08:00 92 Room Air 11/21/16 07:27 36.7 86 18 124/83 (97) 92 Room Air 11/21/16 04:00 Room Air 11/21/16 04:00 36.6 88 18 118/77 (91) 95 Room Air 11/21/16 00:01 Room Air 11/21/16 00:01 36.8 86 18 100/68 (79) 96 Room Air 11/20/16 20:00 Room Air 11/20/16 19:46 36.5 86 18 100/71 (81) 93 Room Air 11/20/16 16:00 Room Air 11/20/16 12:00 94 Room Air 11/20/16 12:00 36.8 94 20 124/80 (95) 94 Room Air Physical Exam General Appearance: no apparent distress Respiratory/Chest: lungs clear, normal breath sounds, no respiratory distress, no accessory muscle use Cardiovascular: regular rate, rhythm, no edema, no murmur Laboratory Results Last 24 Hours Test 11/21/16 05:56 White Blood Count 6.77 K/uL Red Blood Count 4.54 M/uL Hemoglobin 13.2 g/dL Hematocrit 41.0 % Mean Corpuscular Volume 90.3 fL Mean Corpuscular Hemoglobin 29.1 pg Mean Corpuscular Hemoglobin Concent 32.2 g/dl RDW Standard Deviation 46.7 fL RDW Coefficient of Variation 14.3 % Platelet Count 246 K/uL Mean Platelet Volume 9.8 fL Sodium Level 140 mmol/L Potassium Level 4.2 mmol/L Chloride Level 102 mmol/L Carbon Dioxide Level 32 mmol/L Anion Gap 6.0 mmol/L Blood Urea Nitrogen 15 mg/dl Creatinine 0.68 mg/dl Est Creatinine Clear Calc Drug Dose 71.5 ml/min Estimated GFR () 102.0 Estimated GFR (Non- 88.0 BUN/Creatinine Ratio 22.6 Random Glucose 107 mg/dl Calcium Level 9.3 mg/dl Magnesium Level 2.1 mg/dl Assessment and Plan This is a 71 year old female with a PMH of hyperlipidemia - was sent over to the ER due to low LVEF ~ 10% noted on outpatient echocardiogram New Onset, Decompensated Acute Systolic CHF Idiopathic Cardiomyopathy 11/21 appreciate cardiology input LVEF ~ 10-15% will start PO Lasix on 11/22, start Aldactone Currently on Coreg 11/20 echo shows LVEF < 15% continue b-stephon, BLAS-I, Lasix appreciate cardiology input 11/19 +swelling of the b/l ankles, had echo done as an outpatient LVEF ~ 10% as outpatient BNP elevated > 11,000 started on IV Lasix 20mg BID, low dose lisinopril and b-stephon cardiology consult pending for further input patient is a DNR at this point Elevated BP without Diagnosis of HTN patient presented with elevated BP does not take any medications as outpatient started on BLAS-I, b-stephon due to systolic CHF Elevated Troponin this is more likely due to her significantly diminished LVEF of 10% trend enzymes, which are trending down continue aspirin and b-stephon Possible UTI as per outpatient records, had been on Macrobid, to be on this for four more days DVT ppx Lovenox DNR
[2016-11-22] VITALS (8 sets, daily range): BP systolic 103–121; BP diastolic 68–81; PULSE 79–91; TEMP 36.5–36.7; O2SAT 92–96
[2016-11-22 05:35] LABS: BASO % 0.5 %; BASO ABS # 0.03 K/uL (0-0.2); COMPLETE YES; EOS % 1.8 %; HEMATOCRIT 41.4 % (37-47); IG% 0.4 %; LYMPH % 28.4 %; LYMPH ABS # 1.62 K/uL (1.2-3.4); MEAN CELL VOLUME 89.6 fL (80-100); MEAN CORPUSCULAR HGB CONC 32.4 g/dl (32-36); MONO % 8.8 %; NEUT % 60.1 %; PLATELET COUNT 245 K/uL (130-400); RED BLOOD COUNT 4.62 M/uL (4.2-5.4); WHITE BLOOD COUNT 5.71 K/uL (4.8-10.8)
[2016-11-22 06:01] LABS: BUN/CREATININE RATIO 25.3 (10-20); CALCIUM 8.8 mg/dl (8.5-10.1); CREATININE 0.65 mg/dl (0.60-1.20); MAGNESIUM 2.2 mg/dl (1.8-2.4); POTASSIUM 4.1 mmol/L (3.5-5.1)
[2016-11-22] MEDS: ENOXAPARIN 40 MG/0.4 ML SYR SC SCH (06:43)
[2016-11-22] MEDS: LISINOPRIL 5 MG TAB PO SCH (07:36)
[2016-11-22] MEDS: CARVEDILOL 3.125 MG TAB PO SCH (07:37)
[2016-11-22] MEDS: NITROFURANTOIN MONOHYDRATE 100 MG CAP PO SCH ×2 (07:37→20:58)
[2016-11-22] MEDS: ASPIRIN 81 MG ECTAB PO SCH (08:06)
[2016-11-22] MEDS ORDERED: SPIRONOLACTONE 25 MG TAB PO SCH (09:00)
[2016-11-22] MEDS ORDERED: FUROSEMIDE 40 MG TAB PO SCH (09:00)
--- NOTE | 2016-11-22 09:08 | Cardiology Follow-Up ---
Subjective General Date of Service: Nov 22, 2016. Chief Complaint: SOB Pt evaluation today including: conversation w/ patient, physical exam, chart review, lab review, review of studies, review of inpatient medication list History of Present Illness Patient seen and examined. Admitted with new onset acute decompensated systolic heart failure secondary to a dilated cardiomyopathy of unknown etiology. No change from yesterday. Exertional fatigue, dyspnea, and peripheral edema have all improved since admission. She remains dyspneic when ambulating the hallway. She denies chest pain, palpitations, abdominal bloating, orthopnea or PND I/O's are NOT accurately recorded. Weight is down since admission. Telemetry: Currently since in the . Short VPC runs noted. No significant bradycardia or pauses. November 20, 2016 TTE Interpretation Summary ([facility], Dr. Gilbert): The left ventricle is severely dilated. Left ventricular systolic function is severely reduced. Ejection Fraction = <15%. The right ventricle is severely dilated. The right ventricular systolic function is severely reduced. The left atrium is severely dilated. The right atrium is severely dilated. There is mild mitral regurgitation. There is moderate tricuspid regurgitation. Allergies Coded Allergies: No Known Allergies (Unverified , 11/18/16) Social History Smoking Status: Current Every Day Smoker Hx Tobacco Use In Past Year?: Yes Hx Alcohol Use - Type And Amou: No Hx Substance Use - Type And Am: No Problem List Medical Problems: (1) Acute CHF Status: Acute (2) Elevated troponin Status: Acute Physical Exam Vital Signs Last Vital Signs Documentation Date Time Temp Pulse Resp B/P (MAP) Pulse Ox O2 Delivery O2 Flow Rate FiO2 11/22/16 08:00 96 Room Air 11/22/16 07:54 36.7 79 16 115/80 (92) 11/21/16 00:01 Physical Exam Constitutional: General Apperance: heathly-appearing Level of Distress: NAD Ambulation: ambulating normally Psychiatric: Mental Status: active & alert Orientation: to time, to place, to person Memory: recent memory normal, remote memory normal Head: normocephalic, atraumatic Eyes: Pupils: PERRLA Neck: pertinent finding (Mildly elevated JVP) Lungs: Respiratory effort: no dyspnea Auscultation: no wheezing, no rhonchi, deminished air movement, decreased breath sounds, rales/crackles on the left, rales/crackles on the right Cardiovascular: Heart Auscultation: RRR (86 bpm), no murmurs, no rubs, no gallops Peripheral Pulses: Dorsalis Pedis Pulse: absent on the left, absent on the right Abdomen: Bowel Sounds: normal Inspection & Palpation: soft, non-distended, no tenderness, guarding & rebound, no masses Extremities: no cyanosis, no clubbing, edema (Minimal edema), varicosities Neurologic: Cranial Nerves: grossly intact Assessment and Plan Assessment and Plan Admission with new onset acute decompensated systolic congestive heart failure signs and symptoms Severe dilated cardiomyopathy of unknown etiology. EF: 10%. Narrow QRS duration (96 ms). NYHA Functional Capacity Class III, Objective Assessment C Volume status: Normovolemic to mildly hypervolemic. RECOMMENDATIONS/PLAN: Titrate Carvedilol to 6.25 mg twice a day. If hypotension observed would switch to Toprol XL. Feed today. NPO (except medications (see below)) after midnight for diagnostic cardiac catheterization in AM of 11/23/2016 (see below) Hold furosemide, spironolactone, and Lovenox in AM of 11/23/16 for catheterization Consider changing Lisinopril to Entresto (Sacubitril 24 mg, valsartan 26 mg twice daily) down the road, as an outpatient, after washing out Lisinopril for 36 hours. Plan is for optimal medical management x 3 months. If EF remains less than or equal to 35% will refer to EP for primary prevention ICD implantation. Further recommendations pending the above, evaluation by Dr. Pulliam, and her ongoing hospitalization. CARDIOLOGY ATTENDING ADDENDUM: The patient was seen and personally examined. Agree with Nciolás Moe PA-C's findings and plans as documented above with additions as noted below. Subjective: Patient states she is feeling well today. She's been ambulating in the hallway with no concerns at present. Exam: Lungs clear to auscultation, cardiovascular regular with no murmur, extremities no edema Impression: Acute decompensation systolic heart failure, newly diagnosed cardiomyopathy with severe systolic dysfunction. Plan: Proceed with workup for secondary causes of cardiomyopathy. Plan for diagnostic cardiac catheterization this admission when schedule permits. Make nothing by mouth after midnight tomorrow for planned cardiac catheterization 11/23/16. Continue Lovenox for DVT prophylaxis. Laboratory Results Last 24 Hours Test 11/22/16 05:10 White Blood Count 5.71 K/uL Red Blood Count 4.62 M/uL Hemoglobin 13.4 g/dL Hematocrit 41.4 % Mean Corpuscular Volume 89.6 fL Mean Corpuscular Hemoglobin 29.0 pg Mean Corpuscular Hemoglobin Concent 32.4 g/dl Platelet Count 245 K/uL Mean Platelet Volume 10.0 fL Neutrophils (%) (Auto) 60.1 % Lymphocytes (%) (Auto) 28.4 % Monocytes (%) (Auto) 8.8 % Eosinophils (%) (Auto) 1.8 % Basophils (%) (Auto) 0.5 % Neutrophils # (Auto) 3.44 K/uL Lymphocytes # (Auto) 1.62 K/uL Monocytes # (Auto) 0.50 K/uL Eosinophils # (Auto) 0.10 K/uL Basophils # (Auto) 0.03 K/uL RDW Standard Deviation 46.5 fL RDW Coefficient of Variation 14.2 % Immature Granulocyte % (Auto) 0.4 % Immature Granulocyte # (Auto) 0.02 K/uL Sodium Level 140 mmol/L Potassium Level 4.1 mmol/L Chloride Level 103 mmol/L Carbon Dioxide Level 32 mmol/L Anion Gap 5.0 mmol/L Blood Urea Nitrogen 16 mg/dl Creatinine 0.65 mg/dl Est Creatinine Clear Calc Drug Dose 74.1 ml/min Estimated GFR () 103.5 Estimated GFR (Non- 89.3 BUN/Creatinine Ratio 25.3 Random Glucose 105 mg/dl Calcium Level 8.8 mg/dl Magnesium Level 2.2 mg/dl
[2016-11-22 10:28] LABS: FERRITIN 43.9 ng/ml (8.0-388.0)
--- NOTE | 2016-11-22 19:45 | Progress Note ---
Internal Med Progress Note Date of Service: Nov 22, 2016. Provider Documentation: SUBJECTIVE: feels fine , walking in room independently no SOB , no VIVAS or chest discomfort scheduled to have cardiac cath tomorrow OBJECTIVE: Vital Signs-as noted below Exam: General-no sign of distress Eyes-sclera non icteric ENT-NAD Neck-no JVD Lungs-CTA Heart-regular S1/S2 Abdomen-soft, non tender Extremities-no lower ext edema , no calf tenderness Neuro-AAO x3, no focal deficit Lab data as noted below. ASSESSMENT & PLAN: New Onset, Decompensated Acute Systolic CHF Idiopathic Cardiomyopathy appreciate cardiology input LVEF ~ 10-15% started PO Lasix on 11/22, start Aldactone Cont on Coreg schedule for cardiac cath tomorrow Elevated BP without Diagnosis of HTN cont on Lasix , Aldactone , Coreg Elevated Troponin this is more likely due to her significantly diminished LVEF of 10% continue aspirin and b-stephon Cardiac cath schedule for tomorrow DVT ppx Lovenox DISPOSITION plan for cardiac cath tomorrow expected to be discharged home when medically stable Vital Signs: Date Time Temp Pulse Resp B/P (MAP) Pulse Ox O2 Delivery O2 Flow Rate FiO2 11/22/16 19:27 36.5 89 18 110/75 (87) 92 Room Air 11/22/16 16:00 Room Air 11/22/16 15:29 36.5 79 16 103/68 (80) 95 Room Air 11/22/16 14:00 82 18 103/69 (80) 95 Room Air 11/22/16 12:00 Room Air 11/22/16 08:00 96 Room Air 11/22/16 07:54 36.7 79 16 115/80 (92) 94 11/22/16 07:35 91 121/81 (94) 11/22/16 05:10 Room Air 11/22/16 04:00 36.7 87 18 105/71 (82) 93 Room Air 11/22/16 04:00 92 Room Air 11/22/16 00:00 36.7 86 20 115/74 (88) 94 Room Air 11/22/16 00:00 92 Room Air 11/21/16 21:35 89 111/77 (88) Lab Results: Results Past 24 Hours Test 11/22/16 05:10 11/22/16 09:30 Range/Units White Blood Count 5.71 4.8-10.8 K/uL Red Blood Count 4.62 4.2-5.4 M/uL Hemoglobin 13.4 12.0-16.0 g/dL Hematocrit 41.4 37-47 % Mean Corpuscular Volume 89.6 80-100 fL Mean Corpuscular Hemoglobin 29.0 25-34 pg Mean Corpuscular Hemoglobin Concent 32.4 32-36 g/dl Platelet Count 245 130-400 K/uL Mean Platelet Volume 10.0 7.4-10.4 fL Neutrophils (%) (Auto) 60.1 % Lymphocytes (%) (Auto) 28.4 % Monocytes (%) (Auto) 8.8 % Eosinophils (%) (Auto) 1.8 % Basophils (%) (Auto) 0.5 % Neutrophils # (Auto) 3.44 1.4-6.5 K/uL Lymphocytes # (Auto) 1.62 1.2-3.4 K/uL Monocytes # (Auto) 0.50 0.11-0.59 K/uL Eosinophils # (Auto) 0.10 0-0.5 K/uL Basophils # (Auto) 0.03 0-0.2 K/uL RDW Standard Deviation 46.5 36.4-46.3 fL RDW Coefficient of Variation 14.2 11.5-14.5 % Immature Granulocyte % (Auto) 0.4 % Immature Granulocyte # (Auto) 0.02 0.00-0.02 K/uL Sodium Level 140 136-145 mmol/L Potassium Level 4.1 3.5-5.1 mmol/L Chloride Level 103 98-107 mmol/L Carbon Dioxide Level 32 21-32 mmol/L Anion Gap 5.0 3-11 mmol/L Blood Urea Nitrogen 16 7-18 mg/dl Creatinine 0.65 0.60-1.20 mg/dl Est Creatinine Clear Calc Drug Dose 74.1 ml/min Estimated GFR () 103.5 Estimated GFR (Non- 89.3 BUN/Creatinine Ratio 25.3 10-20 Random Glucose 105 70-99 mg/dl Calcium Level 8.8 8.5-10.1 mg/dl Magnesium Level 2.2 1.8-2.4 mg/dl Iron Level 47 35-150 mcg/dl Total Iron Binding Capacity 475 250-450 mcg/dl Transferrin 347 200-360 mg/dl Transferrin % Saturation 10 15-50 % Ferritin 43.9 8.0-388.0 ng/ml
[2016-11-22] MEDS: CARVEDILOL 6.25 MG TAB PO SCH (20:57)
[2016-11-22] MEDS: ACETAMINOPHEN 325 MG TAB PO PRN (21:00)
[2016-11-23] VITALS (14 sets, daily range): BP systolic 93–131; BP diastolic 59–89; PULSE 65–81; TEMP 36.3–37.1; O2SAT 92–96
[2016-11-23] MEDS: CARVEDILOL 6.25 MG TAB PO SCH (07:57)
[2016-11-23] MEDS: LISINOPRIL 5 MG TAB PO SCH (07:57)
[2016-11-23] MEDS: ASPIRIN 81 MG ECTAB PO SCH (07:58)
[2016-11-23] MEDS: NITROFURANTOIN MONOHYDRATE 100 MG CAP PO SCH (07:58)
--- NOTE | 2016-11-23 08:49 | Cardiology Follow-Up ---
Subjective General Date of Service: Nov 23, 2016. Chief Complaint: HF Pt evaluation today including: conversation w/ patient, physical exam, chart review, lab review, review of studies, review of inpatient medication list History of Present Illness Patient seen and examined. No complaints or concerns other than being nervous for diagnostic cardiac catheterization Ambulated the hallway this morning without dyspnea. Denies chest pain, palpitations, abdominal bloating, or PND Telemetry: Currently since in the 80's. PVC's in singles, rare couplet. No significant bradycardia or pauses. Allergies Coded Allergies: No Known Allergies (Unverified , 11/18/16) Social History Smoking Status: Current Every Day Smoker Hx Tobacco Use In Past Year?: Yes Hx Alcohol Use - Type And Amou: No Hx Substance Use - Type And Am: No Problem List Medical Problems: (1) Acute CHF Status: Acute (2) Elevated troponin Status: Acute Physical Exam Vital Signs Last Vital Signs Documentation Date Time Temp Pulse Resp B/P (MAP) Pulse Ox O2 Delivery O2 Flow Rate FiO2 11/23/16 07:35 36.8 79 18 113/76 (88) 95 11/23/16 04:14 Room Air 11/21/16 00:01 Physical Exam Constitutional: General Apperance: heathly-appearing Level of Distress: NAD Ambulation: ambulating normally Psychiatric: Mental Status: active & alert Orientation: to time, to place, to person Memory: recent memory normal, remote memory normal Head: normocephalic, atraumatic Eyes: Pupils: PERRLA Neck: pertinent finding (Mildly elevated JVP) Lungs: Respiratory effort: no dyspnea Auscultation: no wheezing, no rhonchi, deminished air movement, decreased breath sounds Cardiovascular: Heart Auscultation: RRR (86 bpm), no murmurs, no rubs, no gallops Peripheral Pulses: Dorsalis Pedis Pulse: decreased on the left, decreased on the right Abdomen: Bowel Sounds: normal Inspection & Palpation: soft, non-distended, no tenderness, guarding & rebound, no masses Extremities: no cyanosis, no edema, no clubbing, varicosities Neurologic: Cranial Nerves: grossly intact Assessment and Plan Assessment and Plan Admission with new onset acute decompensated systolic congestive heart failure signs and symptoms, severe dilated cardiomyopathy of unknown etiology. EF: 10%. Narrow QRS duration (96 ms). NYHA Functional Capacity Class III, Objective Assessment C Volume status: Normovolemic. RECOMMENDATIONS/PLAN: Diagnostic cardiac catheterization today Medications as prescribed. Optimal medical management x 3 months; primary prevention ICD if EF remains less than or equal to 35% Further recommendations pending the above, evaluation by Dr. Pulliam, and her ongoing hospitalization. Recommend close outpatient cardiology follow-up. CARDIOLOGY ATTENDING ADDENDUM: The patient was seen and personally examined. Agree with Nicolás Moe PA-C's findings and plans as documented above and additions as noted below. Mild to moderate CAD noted on cardiac cath: 60% mid LAD 50% mid-distal LAD 50% mid Lcx Long 40-50% mid RCA Pt feels well post cardiac cath. Exam: Right radial site , clean ,dry , and intact , without ecchymosis. 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 Patient clinically improved. Plan: Add atorvastatin to: ASA 81 mg daily Coreg lisinopril aldactone 12.5 mg (held for cath, ok to send pt home on aldactone). Stable for discharge with close outpt cardio follow up. Michael Pulliam, Laboratory Results Last 24 Hours Test 11/22/16 09:30 Iron Level 47 mcg/dl Total Iron Binding Capacity 475 mcg/dl Transferrin 347 mg/dl Transferrin % Saturation 10 % Ferritin 43.9 ng/ml
[2016-11-23] MEDS: NICOTINE 14 MG/24 HR TDSY TD SCH (09:00)
[2016-11-23] MEDS ORDERED: NiCARDipine HCL INJ 2.5 MG/ML 10 ML AMP ONE (10:47)
[2016-11-23] MEDS ORDERED: FENTANYL CITRATE INJ 50 MCG/1 ML 2 ML VIAL ONE (10:47)
[2016-11-23] MEDS ORDERED: HEPARIN SOD (PORCINE) 1000 UNIT/ML 10 ML VIAL ONE (10:47)
[2016-11-23] MEDS ORDERED: MIDAZOLAM HCL 1 MG/ML 2ML VIAL ONE (10:48)
[2016-11-23] MEDS ORDERED: NITROGLYCERIN/D5W 100MCG/ML 20ML SYR ONE (10:50)
[2016-11-23] MEDS ORDERED: ASPEC81 PO (11:33)
[2016-11-23] MEDS ORDERED: LSX40 PO (11:33)
[2016-11-23] MEDS ORDERED: SPR25 PO (11:33)
[2016-11-23] MEDS ORDERED: CRG625 PO (11:33)
[2016-11-23] MEDS ORDERED: NTRSLP4 SL (11:33)
[2016-11-23] MEDS ORDERED: LSN5 PO (11:33)
--- NOTE | 2016-11-23 11:37 | Procedure Note ---
Pre-Mod Sedation Assessment General Date of Moderate Sedation: Nov 23, 2016. Vital Signs: Vital Signs Past 12 Hours Date Time Temp Pulse Resp B/P (MAP) Pulse Ox O2 Delivery O2 Flow Rate FiO2 11/23/16 11:30 84 16 124/82 (96) 99 Mask 3 11/23/16 08:00 Room Air 11/23/16 07:35 36.8 79 18 113/76 (88) 95 11/23/16 04:14 36.3 76 20 110/70 (83) 95 Room Air 11/23/16 04:00 92 Room Air 11/23/16 00:14 36.4 74 16 93/59 (70) 92 Room Air 11/23/16 00:00 92 Room Air Review Cardiovascular: regular rate, rhythm, no edema Abdomen: normal bowel sounds, non tender, soft Lungs: chest non-tender, lungs clear, normal breath sounds Pre-Sedation Airway Assessment Oral Cavity: WNL Short Thick Neck: No Hx of Sleep Apnea: No Smoking Status: Current Every Day Smoker Mallampati Classification: Class II ASA Classification: Class IV Procedure Planning Contraindications-for Mod Sed: None Yes Notes The planned sedation has been discussed with the patient and consent obtained. I have identified the patient, determined the appropriateness of sedation and have assessed the patient immediately prior to the procedure. All medicine(s) and interventions are by my order.
[2016-11-23] MEDS ORDERED: SODIUM CHLORIDE 0.9% 1000ML 250 ML IV PRN (11:38)
--- NOTE | 2016-11-23 11:38 | Procedure Note ---
Post-Mod Sedation Assessment General Date of Moderate Sedation Nov 23, 2016. Vital Signs: Vital Signs Past 12 Hours Date Time Temp Pulse Resp B/P (MAP) Pulse Ox O2 Delivery O2 Flow Rate FiO2 11/23/16 11:30 84 16 124/82 (96) 99 Mask 3 11/23/16 08:00 Room Air 11/23/16 07:35 36.8 79 18 113/76 (88) 95 11/23/16 04:14 36.3 76 20 110/70 (83) 95 Room Air 11/23/16 04:00 92 Room Air 11/23/16 00:14 36.4 74 16 93/59 (70) 92 Room Air 11/23/16 00:00 92 Room Air Review - Discharge Criteria Vital Signs Stable: Yes Alert/Oriented/Conversant: Yes Returned to Baseline Mental St: Yes Nausea Absent/Minimal: Yes Pain/Discomfort/Absent/Minimal: Yes Normal/Baseline Respirations: Yes Active Bleeding?: No Pt Received D/C Instructions: N/A Prescriptions Given: None Specific Proced. D/C Criteria Distal Pulses Present (Cardiac: Yes Groin site assessed-Card Cath: N/A Voided Prior To Discharge: N/A Discharged Patients Adult Escort/Transportation: N/A
[2016-11-23] MEDS ORDERED: ACETAMINOPHEN 325 MG TAB PO PRN (11:45)
[2016-11-23] MEDS ORDERED: ONDANSETRON INJ 2 MG/ML 2 ML VIAL IV PRN (11:45)
[2016-11-23] MEDS ORDERED: ATROPINE SULFATE 0.1 MG/ML 5ML SYR IV PRN (11:45)
--- NOTE | 2016-11-23 11:46 | Cardiac Catheterization ---
Procedure Note Procedure Date Nov 23, 2016. Pre-Procedure Diagnosis CHF, Cardiomyopathy, Cardiothoracic Symptom AUC Score 8 Post-Procedure Diagnosis Moderate CAD Procedure(s) Performed Coronary Angiography, Left Heart Cath Biological Photographer Dr. Chao Shape Hand(s) Ivon RTR Estimated Blood Loss 5cc Medication(s) Heparin, Nicardipine, Nitroglycerin, Versed, Lidocaine 1% Summary of Findings 50% mid LAD 50% mid-distal LAD 40% mid Lcx Long 40-50% mid RCA Elevated LVEDP Hemodynamics Rest Ao: 117/68/93 Final Ao: 126/76/96 LV: 125/12/28 Recommendations Medical therapy and/or Counseling Specimens None Radiation Exposure (mGy) 1177 Contrast (mls) 45 Anesthesia Moderate sedation. Start 1102. End 1130. Sedation monitor. Michael Dixon RN Procedural Complication(s) None Disposition PCU ACC Data Cardiac Status Clinical evaluation leading to the procedure CAD Presntation: Unstable angina Anginal Classification: CCS III Heart Failure: Yes, NYHA Class: CCS III Cardiogenic Shock w/in 24Hrs: No Cardiac Arrest w/in 24Hrs: No Imaging studies past 6 months: Yes Stress studies past 6 months: No Standard Exercise Stress Test: No Stress Echocardiogram: No Stress Testing w/SPECT MPI: No Cardiac CTA: No Coronary Anatomy Dominant: Right Left Main (% Stenosis): Normal LAD (% Stenosis): Proximal (30% in area of moderate calcification), Mid (50%), Distal (50%) D1 (% Stenosis): Mid (10-20%), Distal (40% at burfurcation) Circumflex (% Stenosis): Proximal (10%), Mid (long 40%), Distal (10%) OM1 (% Stenosis): Mid (30%) RCA (% Stenosis): Proximal (10%), Mid (long 40-50%), Distal (20%) R PDA (% Stenosis): Normal AM (% Stenosis): Ostial (20%), Mid (20%) Diagnostic Status: Elective Closure Device Percutaneous Entry Location: Radial Intraprocedure Events Significant Dissection: No Perforation: No
--- NOTE | 2016-11-23 14:17 | Discharge Instructions ---
Discharge Instructions Date of Service Nov 23, 2016. Admission Reason for Admission: Elevated Troponin I Level, Sob Discharge Discharge Diagnosis / Problem: ACUTE CHF WITH SEVERE SYSTOLIC DYSFUNCTION / CARDIOMYOPATHY /CAD Discharge Goals Goal(s): Decrease discomfort, Improve disease control, Diagnostic testing, Therapeutic intervention Activity Recommendations Activity Limitations: resume your previous activity ACTIVITY RECOMMENDATIONS: Excess manipulation of the wrist should be avoided for the next 24-48 hours. * No lifting over 2 pounds (approximately a 1/2 gallon of milk) with the utilized arm for 24 hours. * No strenuous activity such as bowling or tennis for 3 days. * Keep the site of the procedure covered with a bandage for 24 hours. *You may shower the day after the procedure. Do not take a tub bath or submerge the puncture site in water for the next 3 days. *Do not operate any motorized equipment for 3 days. SPECIAL CARE INSTRUCTIONS: The site may be slightly bruised and sore following your procedure. Should any of the following occur, contact the Dr. who performed your procedure. 1. Redness/inflammation, swelling, chills, or fever, or colored drainage at procedure site within 3-7 days after your procedure. 2. Coldness, discoloration, ongoing numbness, severe pain, or swelling. Expect mild tingling of hand and tenderness at the puncture site for up to three days. If this persists beyond three days, or other symptoms develop, notify the Dr. who performed your procedure. BLEEDING: If the procedure site on your wrist begins to bleed, do not panic 1. Place 1 or 2 fingers firmly just slightly above the insertion site to stop the bleeding. You may be able to feel your pulse as you hold pressure. 2. Lift your finger after 5 minutes to see if the bleeding has stopped. 3. Once the bleeding has stopped, gently wipe the wrist area clean with a bandage. * If the bleeding from your wrist does not stop after 10 minutes, or if there is a large amount of bleeding or spurting, call 911 (do not drive yourself to the hospital). SKIN IRRITATION: * You may experience some redness and/or swelling in the area where radiation was administered. If any skin irritation occurs, please contact your family physician. FOLLOW UP VISIT: Keep any scheduled doctor appointments. . Instructions / Follow-Up Instructions / Follow-Up HOSPITAL FOLLOW UP : 11/28/2016 9:40 AM Kimani Sanford MD Family [facility] CARDIOLOGY FOLLOW UP : 11/25/2016 1:25 PM Lucas Gilbert, Cardiology, [facility] Call your Primary Care doctor if any of the following symptoms or problems start or get worse: * Shortness of breath or difficulty breathing * Wake up at night short of breath * Chest pain * Cough * Swelling of your hands, feet, or legs * More fatigued or tired with your normal activity * Palpitations - sudden fast heart beats WEIGHT * Weigh yourself every morning after using the bathroom. * Use the same scale. * Wear the same amount of clothing. * Write your weight down on a chart. * Call your Primary Care doctor if you gain more than 2-3 pounds in 1-2 days. MEDICATIONS * Use this discharge instruction sheet for medication instructions. * Take your medications at the time your doctor ordered. * Do not skip a dose of your medicines. * If you miss a dose of medicine, take it as soon as possible, but DO NOT DOUBLE A DOSE. * Read your medicine information when you get home. * Know all of the side effects of your medicine. If in doubt, ask your pharmacist * Call your Primary Care doctor's office if you have any side effects. * Be sure all of your doctors know what medicine and herbs you take (including cold, flu, and herbal medicine). Take the following with you to your follow-up doctor appointments: * Weight Chart * Medication List * List of questions Do not drink excessive alcohol, beer or wine. Current Hospital Diet Patient's current hospital diet: Low Sodium Diet (2gm Na), AHA Diet (Heart Healthy) Discharge Diet Recommended Diet: AHA Diet (Heart Healthy), Low Sodium Diet (2gm Na) Pending Studies Studies pending at discharge: no Laboratory Results Lipid Panel Test 11/19/16 05:34 Range/Units Triglycerides Level 98 0-150 mg/dl Cholesterol Level 167 0-200 mg/dl HDL Cholesterol 24 mg/dl Cholesterol/HDL Ratio 7.0 LDL Cholesterol, Calculated 123 mg/dl Medical Emergencies . Who to Call and When: Call 911 or go to the Emergency Room if: * If at any time you feel your situation is an emergency * You have tightness or pain in your chest that does not go away with rest or Nitroglycerin * You are very short of breath even with rest . Non-Emergent Contact Non-Emergency issues call your: Primary Care Provider . . "Provider Documentation" section prepared by Dori Saeed. . VTE Core Measure Inpt VTE Proph given/why not?: Enoxaparin (Lovenox)SQ
--- NOTE | 2016-11-23 15:40 | Cardiology Progress Note ---
Cardiology Progress Note Date of Service Nov 23, 2016. Cardiology Progress Note Mild to moderate CAD noted on cardiac cath: 60% mid LAD 50% mid-distal LAD 50% mid Lcx Long 40-50% mid RCA Pt feels well post cardiac cath. Exam: Right radial site , clean ,dry , and intact , without ecchymosis. 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 Patient clinically improved. Plan: Add atorvastatin to: ASA 81 mg daily Coreg lisinopril aldactone 12.5 mg (held for cath, ok to send pt home on aldactone). Stable for discharge with close outpt cardio follow up. Michael Pulliam DO
[2016-11-23] MEDS: ATORVASTATIN 40 MG TAB PO ONE ×2 (15:53→15:56)
--- NOTE | 2016-11-23 15:58 | Cardiology Progress Note ---
Cardiology Progress Note Date of Service Nov 23, 2016. Cardiology Progress Note Pt with muscle aches on atorvastatin in past, but tolerated simvastatin, will transition to simvastatin instead.
[2016-11-23] MEDS ORDERED: SIMVASTATIN 40 MG TAB PO ONE (16:30)
[2016-11-23 17:03] LABS: ALBUMIN 3.6 G/DL (3.8-4.8); GAMMA GLOBULIN 0.9 G/DL (0.8-1.7); TOTAL PROTEIN 6.7 G/DL (6.2-8.3)
[2016-11-23] MEDS ORDERED: ZCR40 PO (17:22)
--- NOTE | 2016-11-23 17:37 | Progress Note ---
Internal Med Progress Note Date of Service: Nov 23, 2016. Provider Documentation: SUBJECTIVE: had cardiac cath earlier this AM rt radial approach , cath site shows no evidence of bleeding or oozing , no pain or discomfort no complain of chest pain or SOB ambulating with put c/p chest heaviness or SOB OBJECTIVE: Vital Signs-as noted below Exam: General-no sign of distress Eyes-sclera non icteric ENT-NAD Neck-no JVD Lungs-CTA Heart-regular S1/S2 Abdomen-soft, non tender Extremities-no lower ext edema , no calf tenderness /rt wrist cath site intact , no ecchymosis , no bleeding Neuro-AAO x3, no focal deficit Lab data as noted below. ASSESSMENT & PLAN: New Onset, Decompensated Acute Systolic CHF Idiopathic Cardiomyopathy presented with SOB . lower extremity swelling, symptom improved after diuresis denies of orthopnea, VIVAS , lower ext edema resolved appreciate cardiology input ECHO shows LVEF ~ 10-15% cardiac cath shows moderate CAD , no cardiac intervention needed -non ischemic cardiomyopathy pt will be continued on Lasix /ACEI and Aldactone 12.5 mg daily Cont on Coreg close out pt follow up with Cardiology for as out pt schedule in [address] Gilbert pt will need Life vest and possible discussion for AICD placement for high risk for fatal arrhythmia /sudden cardiac pt is educated regarding her poor cardiac reserve/need for Life vest /AICD and seek medical attention for any symptoms of SOB , dizzy spell or chest heaviness pt and voiced understanding HTN cont on Lasix , Aldactone , Coreg .ACEI Elevated Troponin due to demand ischemia with poor cardiac reserve significantly diminished LVEF of 10% Acute CHF with systolic dysfunction no complain of angina no SOB or VIVAS s/p Cardiac cath today : Mild to moderate CAD noted on cardiac cath: 60% mid LAD 50% mid-distal LAD 50% mid Lcx Long 40-50% mid RCA Pt feels well post cardiac cath. added Simvastatin 40 mg daily ( reported intolerance to atorvastatin ) cont ASA 81 mg daily Beta stephon Coreg ( due to significant systolic dysfunction ) added lisinopril cont Aldactone 12.5 mg Stable for discharge with close outpt cardio follow up. DVT ppx Lovenox DISPOSITION discharge home today cardiology follow up with Dr Gilbert on Monday11/25/16 Family medicine follow up with Dr Sanford at [facility] on Monday11/28/16 Vital Signs: Date Time Temp Pulse Resp B/P (MAP) Pulse Ox O2 Delivery O2 Flow Rate FiO2 11/23/16 16:45 37.1 81 16 112/86 (95) 94 Room Air 11/23/16 16:00 Room Air 11/23/16 15:57 36.8 79 16 95 Room Air 11/23/16 14:24 36.8 79 16 129/68 (88) 95 11/23/16 13:24 36.8 78 16 131/74 (93) 95 11/23/16 12:54 36.8 69 16 128/67 (87) 95 11/23/16 12:24 36.8 72 16 131/78 (95) 95 11/23/16 12:09 36.8 65 16 130/74 (92) 95 11/23/16 12:00 Room Air 11/23/16 11:54 74 16 127/89 (102) 96 11/23/16 11:45 82 16 132/78 (96) 95 Room Air 11/23/16 11:30 84 16 124/82 (96) 99 Mask 3 11/23/16 10:36 36.4 79 18 111/78 (89) 95 Room Air 11/23/16 08:00 Room Air 11/23/16 07:35 36.8 79 18 113/76 (88) 95 11/23/16 04:14 36.3 76 20 110/70 (83) 95 Room Air 11/23/16 04:00 92 Room Air 11/23/16 00:14 36.4 74 16 93/59 (70) 92 Room Air 11/23/16 00:00 92 Room Air 11/22/16 20:00 Room Air 11/22/16 19:27 36.5 89 18 110/75 (87) 92 Room Air
--- NOTE | 2016-11-23 17:38 | Discharge Summary ---
Discharge Summary Date of Service Nov 23, 2016. Discharge Summary Admission Date: Nov 18, 2016 at 18:45 Discharge Date: Nov 23, 2016 Discharge Disposition: Home Principal Diagnosis: ACUTE CHF WITH SEVERE SYSTOLIC DYSFUNCTION /CARDIOMYOPATHY /CAD Procedures: Procedure(s) Performed 11/23/16 Coronary Angiography, Left Heart Cath by Dr. Chao Summary of Findings 60% mid LAD 50% mid-distal LAD 50% mid Lcx Long 40-50% mid RCA Elevated LVEDP ECHO : The left ventricle is severely dilated. Left ventricular systolic function is severely reduced. Ejection Fraction = <15%. The right ventricle is severely dilated. The right ventricular systolic function is severely reduced. The left atrium is severely dilated. The right atrium is severely dilated. There is mild mitral regurgitation. There is moderate tricuspid regurgitation. Consultations: [facility] CARDIOLOGY Medication Reconciliation New Medications: Aspirin (Aspirin EC Low Dose) 81 Mg Ectab 81 MG PO QAM for 30 Days, #30 TABS Carvedilol (Carvedilol) 6.25 Mg Tab 6.25 MG PO BID for 30 Days, #60 TAB 2 Refills Furosemide (Furosemide) 40 Mg Tab 40 MG PO QAM for 30 Days, #30 TAB 2 Refills Lisinopril (Lisinopril) 5 Mg Tab 5 MG PO QAM for 30 Days, #30 TAB 2 Refills Nitroglycerin (Nitrostat) 0.4 Mg/1 Tab Subl 0.4 MG SL UD PRN for Chest Pain, #30 TABS Simvastatin (Simvastatin) 40 Mg Tab 40 MG PO PM for 30 Days, #30 TAB 2 Refills Spironolactone (Spironolactone) 25 Mg Tab 12.5 MG PO QAM for 30 Days, #15 TAB 2 Refills Continued Medications: Albuterol Hfa (Ventolin Hfa) 200 Puffs/50672 Mcg Aers 2-4 PUFFS INH Q6H, #1 INHALER Calcium Carbonate-Vitamin D (Calcium + D) 1 Tab Tab Cholecalciferol (Vitamin D 400) 400 Unit Chw Multiple Vitamin (Multivitamin) 1 Tab Tab 1 TAB PO DAILY for 90 Days, #90 TAB 3 Refills Discontinued Medications: Nitrofurantoin Monohyd Macrocr (Macrobid) 100 Mg Cap 100 MG PO BID, #6 CAP Referrals At Discharge Follow up Referrals: Specifications Checker Referral - 11/25/16 with Lucas Gilbert DO Admission Information HPI (per Admitting provider): This is a 71yo with PMH of cardiomegaly, dyslipidemia and tobacco use disorder who presents from PCP for abnormal labwork and echo results. Patient was evaluated for SOB, fatigue and swollen ankles x 1 week. Had echo performed this morning and EF was reported to be very low at 10%. BNP elevated to 11,000. Per chart review, pest control chemical technician reported the finding to patient's PCP and patient was told to come to the ER for further evaluation. Patient had a previous echo performed in Mar 2014 with an EF of 40% with mild LV dysfunction but was not started on medication or given a formal diagnosis of CHF. Denies history of heart disease, HTN, DM II. Endorses SOB at rest, ankle swelling and extreme fatigue. Denies lightheadedness , headache, CP, orthopnea, PND, abd pain, nausea/vomiting or weakness. Denies any weight gain in the past few weeks. Patient was seen this past Monday for dysuria and was diagnosed with a UTI. Has completed 4/7 days of PO Macrobid. Physical Exam (per Admitting): General Appearance: WD/WN, no apparent distress Head: normocephalic, atraumatic Eyes: normal inspection, PERRL, sclerae normal ENT: hearing grossly normal Neck: supple, no adenopathy, no JVD, trachea midline Respiratory/Chest: chest non-tender, no respiratory distress, no accessory muscle use, + crackles (coarse breath sounds at bilateral bases) Cardiovascular: no murmur, normal peripheral pulses, + tachycardia Abdomen/GI: normal bowel sounds, non tender, soft, no organomegaly Back: normal inspection Extremities/Musculoskelatal: normal inspection, no calf tenderness, normal capillary refill, + swelling (2+ pedal/ankle edema bilaterally, trace pretibial edema bilaterally ) Neurologic/Psych: alert, normal mood/affect, normal reflexes Skin: normal color, warm/dry, no rash Hospital Course New Onset, Decompensated Acute Systolic CHF Idiopathic Cardiomyopathy presented with SOB . lower extremity swelling, symptom improved after diuresis denies of orthopnea, VIVAS , lower ext edema resolved appreciate cardiology input ECHO shows LVEF ~ 10-15% cardiac cath shows moderate CAD , no cardiac intervention needed -non ischemic cardiomyopathy pt will be continued on Lasix /ACEI and Aldactone 12.5 mg daily Cont on Coreg close out pt follow up with Cardiology for as out pt schedule in [address] Gilbert pt will need Life vest and possible discussion for AICD placement for high risk for fatal arrhythmia /sudden cardiac pt is educated regarding her poor cardiac reserve/need for Life vest /AICD and seek medical attention for any symptoms of SOB , dizzy spell or chest heaviness pt and voiced understanding HTN cont on Lasix , Aldactone , Coreg .ACEI Elevated Troponin due to demand ischemia with poor cardiac reserve significantly diminished LVEF of 10% Acute CHF with systolic dysfunction no complain of angina no SOB or VIVAS s/p Cardiac cath today : Mild to moderate CAD noted on cardiac cath: 60% mid LAD 50% mid-distal LAD 50% mid Lcx Long 40-50% mid RCA Pt feels well post cardiac cath. added Simvastatin 40 mg daily ( reported intolerance to atorvastatin ) cont ASA 81 mg daily Beta stephon Coreg ( due to significant systolic dysfunction ) added lisinopril cont Aldactone 12.5 mg Stable for discharge with close outpt cardio follow up. DVT ppx Lovenox DISPOSITION discharge home today cardiology follow up with Dr Gilbert on Monday11/25/16 Family medicine follow up with Dr Sanford at [facility] on Monday11/28/16 Total time spent on discharge = 40 [place] NS This includes examination of the patient, discharge planning, medication reconciliation, and communication with other providers. Discharge Instructions Discharge Instructions Date of Service Nov 23, 2016. Admission Reason for Admission: Elevated Troponin I Level, Sob Discharge Discharge Diagnosis / Problem: ACUTE CHF WITH SEVERE SYSTOLIC DYSFUNCTION / CARDIOMYOPATHY /CAD Discharge Goals Goal(s): Decrease discomfort, Improve disease control, Diagnostic testing, Therapeutic intervention Activity Recommendations Activity Limitations: resume your previous activity ACTIVITY RECOMMENDATIONS: Excess manipulation of the wrist should be avoided for the next 24-48 hours. * No lifting over 2 pounds (approximately a 1/2 gallon of milk) with the utilized arm for 24 hours. * No strenuous activity such as bowling or tennis for 3 days. * Keep the site of the procedure covered with a bandage for 24 hours. *You may shower the day after the procedure. Do not take a tub bath or submerge the puncture site in water for the next 3 days. *Do not operate any motorized equipment for 3 days. SPECIAL CARE INSTRUCTIONS: The site may be slightly bruised and sore following your procedure. Should any of the following occur, contact the Dr. who performed your procedure. 1. Redness/inflammation, swelling, chills, or fever, or colored drainage at procedure site within 3-7 days after your procedure. 2. Coldness, discoloration, ongoing numbness, severe pain, or swelling. Expect mild tingling of hand and tenderness at the puncture site for up to three days. If this persists beyond three days, or other symptoms develop, notify the Dr. who performed your procedure. BLEEDING: If the procedure site on your wrist begins to bleed, do not panic 1. Place 1 or 2 fingers firmly just slightly above the insertion site to stop the bleeding. You may be able to feel your pulse as you hold pressure. 2. Lift your finger after 5 minutes to see if the bleeding has stopped. 3. Once the bleeding has stopped, gently wipe the wrist area clean with a bandage. * If the bleeding from your wrist does not stop after 10 minutes, or if there is a large amount of bleeding or spurting, call 911 (do not drive yourself to the hospital). SKIN IRRITATION: * You may experience some redness and/or swelling in the area where radiation was administered. If any skin irritation occurs, please contact your family physician. FOLLOW UP VISIT: Keep any scheduled doctor appointments. . Instructions / Follow-Up Instructions / Follow-Up HOSPITAL FOLLOW UP : 11/28/2016 9:40 AM Kimani Sanford MD [facility] CARDIOLOGY FOLLOW UP : 11/25/2016 1:25 PM Lucas Gilbert DO Cardiology, [facility] Call your Primary Care doctor if any of the following symptoms or problems start or get worse: * Shortness of breath or difficulty breathing * Wake up at night short of breath * Chest pain * Cough * Swelling of your hands, feet, or legs * More fatigued or tired with your normal activity * Palpitations - sudden fast heart beats WEIGHT * Weigh yourself every morning after using the bathroom. * Use the same scale. * Wear the same amount of clothing. * Write your weight down on a chart. * Call your Primary Care doctor if you gain more than 2-3 pounds in 1-2 days. MEDICATIONS * Use this discharge instruction sheet for medication instructions. * Take your medications at the time your doctor ordered. * Do not skip a dose of your medicines. * If you miss a dose of medicine, take it as soon as possible, but DO NOT DOUBLE A DOSE. * Read your medicine information when you get home. * Know all of the side effects of your medicine. If in doubt, ask your pharmacist * Call your Primary Care doctor's office if you have any side effects. * Be sure all of your doctors know what medicine and herbs you take (including cold, flu, and herbal medicine). Take the following with you to your follow-up doctor appointments: * Weight Chart * Medication List * List of questions Do not drink excessive alcohol, beer or wine. Current Hospital Diet Patient's current hospital diet: Low Sodium Diet (2gm Na), AHA Diet (Heart Healthy) Discharge Diet Recommended Diet: AHA Diet (Heart Healthy), Low Sodium Diet (2gm Na) Pending Studies Studies pending at discharge: no Laboratory Results Lipid Panel Test 11/19/16 05:34 Range/Units Triglycerides Level 98 0-150 mg/dl Cholesterol Level 167 0-200 mg/dl HDL Cholesterol 24 mg/dl Cholesterol/HDL Ratio 7.0 LDL Cholesterol, Calculated 123 mg/dl Medical Emergencies . Who to Call and When: Call 911 or go to the Emergency Room if: * If at any time you feel your situation is an emergency * You have tightness or pain in your chest that does not go away with rest or Nitroglycerin * You are very short of breath even with rest . Non-Emergent Contact Non-Emergency issues call your: Primary Care Provider . . "Provider Documentation" section prepared by Dori Saeed. . VTE Core Measure Inpt VTE Proph given/why not?: Enoxaparin (Lovenox)SQ Additional Copies To Lucas Gilbert, DO
[2016-11-24] MEDS ORDERED: ATORVASTATIN 40 MG TAB PO SCH (09:00)
[2016-11-24] MEDS ORDERED: SIMVASTATIN 40 MG TAB PO SCH (21:00)
== END 2016-11-23 18:11 | disposition home or self-care (01) | DRG 287 ==
LOC: C.EDB 16:27 → C.MED 18:45 → ENRESERV 19:32 → C.2E 11-23 12:06
PROVIDERS: ADMIT Hospitalist; ATTEND Hospitalist
PROC: B211YZZ Fluoroscopy of Multiple Coronary Arteries using Other Contrast (ICD-10-PCS; principal; 2016-11-23 11:06)
PROC: 4A023N7 Measurement of Cardiac Sampling and Pressure, Left Heart, Percutaneous Approach (ICD-10-PCS; principal; 2016-11-23 11:06)
DX: I50.21 Acute systolic (congestive) heart failure (principal); N39.0 Urinary tract infection, site not specified; I42.0 Dilated cardiomyopathy; I25.10 Atherosclerotic heart disease of native coronary artery without angina pectoris; E78.5 Hyperlipidemia, unspecified; E87.6 Hypokalemia; R03.0 Elevated blood-pressure reading, without diagnosis of hypertension; J45.909 Unspecified asthma, uncomplicated; Z87.891 Personal history of nicotine dependence; Z79.899 Other long term (current) drug therapy; Z66 Do not resuscitate

== ENCOUNTER 2019-04-30 16:43 | Inpatient (IN) ==
[2019-04-30] MEDS ORDERED: ASPIRIN CHEW 324 MG PO STA (16:49)
[2019-04-30] MEDS ORDERED: Heparin IV Standard *NO* Bolus IV ONE (16:59)
[2019-04-30] MEDS ORDERED: HEPARIN SODIUM/DEXTROSE 25,000 UNITS/500 ML BAG IV SCH (17:00)
[2019-04-30 17:08] LABS: Basophils # (auto) 0.06 K/uL (0-0.2); Basophils % (auto) 0.7 %; Eosinophils % (auto) 1.1 %; Hematocrit (blood only) 41.3 % (37-47); Hemoglobin 13.7 g/dL (12.0-16.0); Immature Granulocytes # (auto) 0.03 K/uL (0.00-0.02); Immature Granulocytes % (auto) 0.3 %; Lymphocytes # (auto) 1.84 K/uL (1.2-3.4); Lymphocytes % (auto) 20.6 %; Mean Corpuscular Hemoglobin 30.7 pg (25-34); Mean Corpuscular Hgb Conc 33.2 g/dL (32-36); Mean Corpuscular Volume 92.6 fL (80-100); Mean Platelet Volume 9.9 fL (7.4-10.4); Monocytes # (auto) 0.93 K/uL (0.11-0.59); Monocytes % (auto) 10.4 %; Neutrophils # (auto) 5.99 K/uL (1.4-6.5); Neutrophils % (auto) 66.9 %; Platelet Count 249 K/uL (130-400); RDW Coefficient of Variation 13.1 % (11.5-14.5); RDW Standard Deviation 44.1 fL (36.4-46.3); Red Blood Count 4.46 M/uL (4.2-5.4); White Blood Count 8.95 K/uL (4.8-10.8)
--- NOTE | 2019-04-30 17:08 | XRay Report ---
XR chest 1V portable CLINICAL HISTORY: Atypical chest pain COMPARISON STUDY: 11/18/2016 FINDINGS: The heart is mildly enlarged. There is no failure. There is no focal pulmonary consolidatio n. There are no pleural effusions.[ IMPRESSION: No active disease in the chest. ACT 112: Negative or not required by law. Electronically signed by: Gianfranco Weller M.D. 04/30/2019 5:07 PM
[2019-04-30 17:28] LABS: Alanine Aminotransferase 34 U/L (12-78); Albumin Level 3.9 gm/dl (3.4-5.0); Aspartate Aminotransferase 84 U/L (15-37); BUN Creatinine Ratio 17.2 (10-20); Blood Urea Nitrogen 21 mg/dl (7-18); Calcium 9.6 mg/dl (8.5-10.1); Carbon Dioxide 27 mmol/L (21-32); Chloride 100 mmol/L (98-107); Est GFR (African American) 50.4; Est GFR (Non-African American) 43.5; Glucose 119 mg/dl (70-99); Lipase 78 U/L (73-393); Potassium 3.4 mmol/L (3.5-5.1); Sodium 135 mmol/L (136-145)
[2019-04-30 17:30] LABS: INR 1.1 (0.9-1.1); Partial Thromboplastin Ratio 1.4; Partial Thromboplastin Time 37.9 Seconds (21.0-31.0); Prothrombin Time 10.9 Seconds (9.0-12.0)
[2019-04-30 17:39] LABS: Albumin Globulin Ratio 0.8 (0.9-2); Alkaline Phosphatase 121 U/L (45-117); Bilirubin,Total 0.7 mg/dl (0.2-1); Creatine Kinase 667 U/L (26-192); Creatine Kinase MB 37.6 ng/ml (0.5-3.6); Globulin 4.7 gm/dl (2.5-4.0); NT Pro B Type Natriuretic Pept 9780 pg/ml (0-900); Total Protein 8.6 gm/dl (6.4-8.2)
--- NOTE | 2019-04-30 19:03 | History & Physical Report ---
Date of Service April 30, 2019 Assessment & Plan (1) NSTEMI (non-ST elevated myocardial infarction): -Admit to telemetry -Patient sent to ED by outpatient global coordinator for evaluation of ACS -Cardiac cath 2017: Nonobstructive CAD -EKG shows ST depressions in the lateral leads, troponin 15.8 -Received SL nitroglycerin in cardiology office, currently chest pain-free -Started on heparin drip in the ED, will continue -Topical nitroglycerin -S/p full dose aspirin in ED -Continue home doses of carvedilol, lisinopril, statin -proBNP 9000; does not examine to be volume overloaded -N.p.o. after midnight for cardiac cath in a.m.; if patient develops worsening chest pain or becomes unstable then urgent cardiac cath (2) Nonischemic cardiomyopathy: -History of EF <15% that resolved with medical therapy (3) CKD (chronic kidney disease), stage III: - baseline creat runs in the low ones - creat noted to be 1.2 today - continue to monitor, avoid nephrotoxic agents when able (4) DVT prophylaxis: -On IV heparin drip History of Present Illness Chief Complaint: Chest pain Primary Care Provider: Kimani Sanford MD 73-year-old female who presents the ED for evaluation of chest pain. Patient reports that 4 days ago, she developed a sudden onset of a severe pressure-like chest pain. She reports the pain radiated into her jaw and down both of her arms. She rates the pain as a number 6 out of 10 at its worst. Symptoms continue to wax and wane over the past 4 days. Patient took one sublingual nitroglycerin at home 2 days ago and reports that resolved her pain for most of the day however the pain did return. She had associated shortness of breath and nausea. Denies lightheadedness, dizziness, diaphoresis, syncopal event. Patient was seen in the cardiology clinic today and found to have ST depressions in lateral leads. She continued to have chest pain and was given a sublingual nitroglycerin with resolution of her pain. She was then referred to the ER for further evaluation. Patient reports she otherwise been feeling well recently. Has been tolerating her activities of daily living at baseline. Noted some worsening lower extremity edema a couple of days ago however that has since resolved. Denies orthopnea. Has had a recent 10 pound intentional weight loss. Denies any other recent illnesses, fevers, chills. No abdominal pain, vomiting, diarrhea. She denies any urinary symptoms. In the ED, troponin is 15.8, EKG shows ST depressions in the lateral leads. Patient is chest pain-free at the time my exam. She is hemodynamically stable. She was given a full dose aspirin and started on a heparin drip. Allergies Allergy/AdvReac Type Severity Reaction Status Date / Time No Known Allergies Allergy Unverified 11/18/16 17:01 Home Medications Home Medications Medication Instructions Recorded Confirmed Type aspirin 81 mg PO QAM 04/30/19 04/30/19 History atorvastatin 40 mg PO QPM 04/30/19 04/30/19 History carvedilol 6.25 mg PO BID 04/30/19 04/30/19 History furosemide 40 mg PO QAM 04/30/19 04/30/19 History lisinopril 5 mg PO QAM 04/30/19 04/30/19 History nitroglycerin [Nitrostat] 0.4 mg SUBLINGUAL DIRECTED PRN 04/30/19 04/30/19 History Past Med/Surg History Medical History CAD (coronary artery disease) Cardiac cath 2016 -nonobstructive CAD CKD (chronic kidney disease), stage III Dyslipidemia Nonischemic cardiomyopathy Resolved with medical therapy Surgical History H/O cardiac catheterization History of appendectomy S/P AAA repair Family History Mother Diabetes Brother Heart disease Sister Heart disease Social History Preferred Language: Bermudian Feels Safe at Home: Yes Smoking Status: Former smoker Hx Alcohol Use: No Review of Systems Review of Systems: ROS per HPI, all other systems reviewed and negative Physical Exam Constitutional: WD/WN, vitals as above Eyes: PERRL, conjunctivae normal, anicteric sclerae ENMT: external ear and nose normal, oropharynx normal Respiratory: normal respiratory effort, lungs clear to auscultation Cardiovascular: Rate/Rhythm: regular rate and regular rhythm Vessels: normal peripheral pulses Extremities: + edema (Trace edema BLE) Gastrointestinal (Abdomen): normal bowel sounds, soft, nontender, no hepatosplenomegaly Musculoskeletal: no cyanosis or clubbing, extremities motor strength 5/5 Skin: no rashes, warm and dry Neurologic: PERRL, EOMI, accommodation nl, no face palsy, no dysarthria Psychiatric: A+Ox3, euthymic affect Results & Data Vital Signs (Past 12 Hours) Vital Signs Temp Pulse Pulse Resp BP BP Pulse Ox 04/30/19 18:44 78 17 140/101 H 96 04/30/19 17:09 96 04/30/19 17:07 96 04/30/19 16:59 90 17 104/76 96 04/30/19 16:44 36.7 C 88 18 114/65 96 Laboratory Results Short CBC 04/30/19 Range/Units 16:55 WBC 8.95 (4.8-10.8) K/uL Hgb 13.7 (12.0-16.0) g/dL Hct 41.3 (37-47) % Plt Count 249 (130-400) K/uL BMP 04/30/19 16:55 Sodium 135 L Potassium 3.4 L Chloride 100 Carbon Dioxide 27 BUN 21 H Creatinine 1.23 H Glucose 119 H Calcium 9.6 Cardiac Enzymes 04/30/19 Range/Units 16:55 Total Creatine Kinase 667 H (26-192) U/L CK-MB (CK-2) 37.6 H (0.5-3.6) ng/ml Troponin I 15.800 H* (0-0.045) ng/ml Liver Function 04/30/19 Range/Units 16:55 Total Bilirubin 0.7 (0.2-1) mg/dl AST 84 H (15-37) U/L ALT 34 (12-78) U/L Alkaline Phosphatase 121 H (45-117) U/L Albumin 3.9 (3.4-5.0) gm/dl Diagnostic Findings CXR IMPRESSION: No active disease in the chest. Code Status & VTE Plan VTE Prophylaxis Plan VTE Prophylaxis will be ordered: No Supervising Physician Co-Signing Physician Notes HISTORY: Record reviewed. Patient interviewed and examined in ED. Care coordinated with NELSY Buitrago. Please refer to her documentation for complete history. Briefly, 73-year-old female with history of coronary artery disease and systolic CHF. Echocardiogram on 11/20/2016 demonstrated LVEF of 15%. Cardiac catheterization on 11/23/2016 demonstrated moderate coronary disease with a 50% mid LAD lesion, 50% mid to distal LAD lesion, 40% mid left circumflex lesion, long 40-50% mid RCA lesion. Medical management was recommended. Repeat echocardiogram on 02/22/2017 demonstrated LVEF of 55-59%. Patient was walking her dog 2 days prior to admission and developed substernal chest pressure that radiated both arms and was associate with dyspnea and nausea. The symptoms lasted throughout the evening into the next morning when she took a nitroglycerin tablet with relief. Developed recurrent similar symptoms today with activity. Seen in Cardiology Clinic. Received a dose of sublingual nitroglycerin with relief of her symptoms. Referred to ED for evaluation. Pain-free at time of my assessment. EXAM: General- no distress Lungs- clear to auscultation; no respiratory distress Cardiovascular- RRR; no murmur; no gallop; no JVD; trace pretibial edema Abdomen- + bowel sounds, soft, nontender Extremities- no cyanosis; no calf tenderness Neuro- alert, oriented Skin- warm & dry DATA: K 3.4. BUN 21, creatinine 1.23. Troponin I 15.8. Pro-BNP 9780. Other lab studies as noted. Chest x-ray reviewed and demonstrated borderline cardiomegaly, no infiltrates, effusions, CHF. EKG performed at 1651 reviewed and demonstrated NSR at 75 / minute, ST depression I, aVL, V3-V6. EKG performed at 1652 reviewed and demonstrated NSR at 78 / minute, PVC, persistent ST depression I, aVL, improvement of ST depression V3-V6. ASSESSMENT AND PLAN: Non-STEMI. History of systolic CHF with improvement. Hypokalemia. Continue ASA. Add IV heparin. Continue carvedilol and lisinopril. Add topical nitrates. Check lipids. Continue statin. Correct hypokalemia. BUN / creatinine a bit elevated compared to baseline; hold diuretics in anticipation of cardiac cath. Cardiology consulted. Resuscitation status was discussed initially with RAFY Bryan and later by the undersigned. Initially the patient indicated that she wished her resuscitation status to be DNR. However, upon further discussion, it was explained that a witnessed cardiopulmonary arrest in the setting of acute GA has a fairly good chance of survival with good neurologic outcome. Patient wished to change her code status to full resuscitation with the understanding that she would not want prolonged extraordinary measures if there was no chance of a meaningful recovery. Please refer to RAFY Bryan's documentation for discussion of other issues.
[2019-04-30] MEDS ORDERED: POTASSIUM CHLORIDE 20 MEQ TABCR PO ONE (19:52)
[2019-04-30] MEDS ORDERED: NITROGLYCERIN SL 0.4 MG/TAB TAB SL PRN (19:52)
[2019-04-30] MEDS ORDERED: ACETAMINOPHEN 325 MG TAB PO PRN (19:52)
[2019-04-30] MEDS ORDERED: NSS + 20MEQ KCL 20 MEQ/1,000 ML BAG IV SCH (20:15)
[2019-04-30] MEDS ORDERED: carvediloL 6.25 MG TAB PO SCH (21:00)
[2019-04-30] MEDS: ATORVASTATIN 40 MG TAB PO SCH (21:24)
[2019-04-30] MEDS: NITROGLYCERIN 2% OINTMENT 30GM TUBE EXT SCH (21:31)
[2019-04-30] MEDS ORDERED: METOPROLOL TARTRATE 1 MG/ML VIAL IV PRN (22:01)
[2019-04-30 22:13] LABS: Potassium 3.3 mmol/L (3.5-5.1)
[2019-04-30 22:23] LABS: Magnesium 1.9 mg/dl (1.8-2.4)
[2019-04-30 22:24] LABS: Troponin I 16.7 ng/ml (0-0.045)
[2019-04-30] MEDS: METOPROLOL TARTRATE 25 MG TAB PO SCH (23:10)
[2019-05-01] MEDS ORDERED: NITROGLYCERIN 2% OINTMENT 30GM TUBE EXT SCH
[2019-05-01] MEDS: NITROGLYCERIN 2% OINTMENT 30GM TUBE EXT SCH ×5 (00:11→23:32)
[2019-05-01] MEDS: POTASSIUM CHLORIDE / WTR 10 MEQ/100 ML PLCT IV SCH ×2 (01:13→02:40)
[2019-05-01 02:50] LABS: Partial Thromboplastin Ratio 3.9
[2019-05-01 02:58] LABS: Partial Thromboplastin Time 104.5 Seconds (21.0-31.0)
[2019-05-01] MEDS ORDERED: PERFLUTREN LIPID MICROSPHERE (DEFINITY) IV ONE (07:06)
--- NOTE | 2019-05-01 07:15 | XRay Report ---
XR chest 1V portable HISTORY: 73 years-old Female MD acute myocardial infarction COMPARISON: Chest radiograph 04/30/2019 TECHNIQUE: Portable AP view of the chest FINDINGS: Cardiac silhouette is mildly enlarged. Calcified plaque of the thoracic aortic arch. Mild biapical pl eural-parenchymal scarring. No pneumothorax, pleural effusion, airspace consolidation or overt pulmon bhavesh edema. Degenerative changes of the shoulders and spine. Mild levoscoliosis of the midthoracic spi ne. IMPRESSION: No acute process. ACT 112: Negative or not required by law. The above report was generated using voice recognition software. It may contain grammatical, syntax o r spelling errors. Electronically signed by: Nicho Mckeon M.D. 05/01/2019 7:14 AM
[2019-05-01] MEDS: ASPIRIN 81 MG ECTAB PO SCH (07:50)
[2019-05-01] MEDS: METOPROLOL TARTRATE 25 MG TAB PO SCH ×2 (07:50→21:58)
[2019-05-01 08:01] LABS: Hematocrit (blood only) 38.3 % (37-47); Hemoglobin 12.7 g/dL (12.0-16.0); Mean Corpuscular Hemoglobin 30.5 pg (25-34); Mean Corpuscular Hgb Conc 33.2 g/dL (32-36); Mean Corpuscular Volume 91.8 fL (80-100); Mean Platelet Volume 9.8 fL (7.4-10.4); Platelet Count 204 K/uL (130-400); RDW Coefficient of Variation 13.2 % (11.5-14.5); RDW Standard Deviation 44.3 fL (36.4-46.3); Red Blood Count 4.17 M/uL (4.2-5.4); White Blood Count 7.21 K/uL (4.8-10.8)
--- NOTE | 2019-05-01 08:34 | Cardiology Consultation ---
Date of Consultation May 01, 2019 Assessment & Plan (1) NSTEMI (non-ST elevated myocardial infarction): The patient has remained pain-free overnight has been placed on appropriate medical therapy. I have held her Lasix and BLAS inhibitor due to anticipated dye load and changed her carvedilol to metoprolol tartrate Preliminary review of the echocardiogram reveals inferior and inferior lateral wall hypokinesis For cardiac catheterization this a.m. (2) CKD (chronic kidney disease), stage III: stable (3) Nonischemic cardiomyopathy: resolved previously with medical therapy (4) CAD (coronary artery disease): hx of nonobstructive disease see above History of Present Illness Reason for Consultation: ACS Requesting Physician: Clementina WHITTINGTON Attending Physician: Ian Martinez MD History of Present Illness The patient presented as an acute add on to my schedule on 04/30/19 with complaints of chest pain. She states that 4 days ago she was in her normal routine at home not doing anything overly strenuous when she suddenly developed severe crushing substernal chest pain. She describes the sensation as though someone put a very heavy brick on her chest. When the pain started it radiated down both of her arms and up her bilateral neck into her jaw. She states that she also became very short of breath at that time and severely nauseated. She did not vomit but she felt that she was close to. At that time her recognize the symptoms and recommend she go the emergency department however the patient refused. Her discomfort subsided somewhat but waxed and waned throughout the night. She then took a nitroglycerin the next morning which did help her discomfort temporally however, the pain then came back. Her discomfort again continue to wax and wane for the next several days until she called [facility] nursing triage today and was set up with this appointment. She states that she has also been significantly nauseated throughout this time period and has not been able to keep any food down. She states that the thought of food makes her nausea worse and she has not eaten anything today. She denies any previously similar episodes. Patient states that she has been pain-free since receiving nitroglycerin in the emergency department. She had no further chest pain overnight and has been resting comfortably. PAST MEDICAL HISTORY: 1. Nonobstructive coronary artery disease with 50% mid LAD and 50% mid-distal LAD, 40% mid circumflex and a long 40 to 50% mid RCA obstructions by cardiac catheterization 2016 2. History of nonischemic cardiomyopathy resolved with medical therapy 3. Abdominal aortic aneurysm status post repair 4. Hypertension 5. Dyslipidemia 6. Elevated BMI 7. Stage 3 chronic kidney disease Allergies Allergy/AdvReac Type Severity Reaction Status Date / Time No Known Allergies Allergy Unverified 11/18/16 17:01 Home Medications Home Medications Medication Instructions Recorded Confirmed Type aspirin 81 mg PO QAM 04/30/19 04/30/19 History atorvastatin 40 mg PO QPM 04/30/19 04/30/19 History carvedilol 6.25 mg PO BID 04/30/19 04/30/19 History furosemide 40 mg PO QAM 04/30/19 04/30/19 History lisinopril 5 mg PO QAM 04/30/19 04/30/19 History nitroglycerin [Nitrostat] 0.4 mg SUBLINGUAL DIRECTED PRN 04/30/19 04/30/19 History Patient History Medical History CAD (coronary artery disease) Cardiac cath 2017 -nonobstructive CAD CKD (chronic kidney disease), stage III Dyslipidemia Nonischemic cardiomyopathy Resolved with medical therapy Surgical History H/O cardiac catheterization History of appendectomy S/P AAA repair Family History Mother Diabetes Brother Heart disease Sister Heart disease Social History Preferred Language: Iranian Communication Ability: Effective Wel[employer] Required: No Beliefs That Will Affect Care: None Current Living Situation: Spouse Other Information That Helps Us Care for You: No Feels Safe at Home: Yes Safety Concerns: Feels Safe At This Time Smoking Status: Former smoker Hx Alcohol Use: No Hx Substance Use: No Review of Systems Review of Systems: All systems reviewed & are unremarkable except as noted in HPI & below Physical Exam Physical Exam: General: Awake, alert and oriented x 3. No acute distress. HEENT: Normocephalic, atraumatic. Pupils equal, round and reactive to light and accommodation. Extraocular muscles are intact. Anicteric sclera. Moist mucous membranes. Neck: No JVD. No bruit. Cardiovascular: Regular. Positive S-4. Normal S-1 and S-2. No S-3. No murmurs or rubs. Pulmonary: Clear to auscultation B/L. No rales, rhonchi or wheezing Abdomen: Bowel sounds x 4, soft. No rebound, guarding or tenderness. No organomegaly. Extremities: No clubbing, cyanosis or edema. +2 pedal pulses bilaterally. Skin: Warm and dry. Results & Data ([facility]) Vital Signs (Past 12 Hours) Vital Signs Temp Pulse Resp BP Pulse Ox 05/01/19 03:36 36.9 C 81 17 111/72 95 04/30/19 23:43 36.7 C 87 17 90/54 L 93 04/30/19 23:09 36.6 C 88 16 97/67 L 93 Laboratory Results Cardiac Enzymes 04/30/19 04/30/19 Range/Units 16:55 21:36 AST 84 H (15-37) U/L CK-MB (CK-2) 37.6 H (0.5-3.6) ng/ml Troponin I 15.800 H* 16.700 H* (0-0.045) ng/ml Coagulation 04/30/19 05/01/19 Range/Units 16:55 02:15 PT 10.9 (9.0-12.0) Seconds APTT 37.9 H 104.5 H* (21.0-31.0) Seconds CBC 04/30/19 05/01/19 Range/Units 16:55 07:36 WBC 8.95 7.21 (4.8-10.8) K/uL RBC 4.46 4.17 L (4.2-5.4) M/uL Hgb 13.7 12.7 (12.0-16.0) g/dL Hct 41.3 38.3 (37-47) % Plt Count 249 204 (130-400) K/uL Neut # (Auto) 5.99 (1.4-6.5) K/uL Lymph # (Auto) 1.84 (1.2-3.4) K/uL [place] # (Auto) 0.93 H (0.11-0.59) K/uL Eos # (Auto) 0.10 (0-0.5) K/uL Baso # (Auto) 0.06 (0-0.2) K/uL Comprehensive Metabolic Panel 04/30/19 04/30/19 Range/Units 16:55 21:36 Sodium 135 L (136-145) mmol/L Potassium 3.4 L 3.3 L (3.5-5.1) mmol/L Chloride 100 (98-107) mmol/L Carbon Dioxide 27 (21-32) mmol/L BUN 21 H (7-18) mg/dl Creatinine 1.23 H (0.6-1.2) mg/dl Glucose 119 H (70-99) mg/dl Calcium 9.6 (8.5-10.1) mg/dl AST 84 H (15-37) U/L ALT 34 (12-78) U/L Alkaline Phosphatase 121 H (45-117) U/L Total Protein 8.6 H (6.4-8.2) gm/dl Albumin 3.9 (3.4-5.0) gm/dl Intake and Output 04/30/19 05/01/19 05/01/19 22:59 06:59 14:59 Intake Total 1331.800 / 1331.800 119.333 / 119.333 Output Total 450 / 450 Balance 881.800 / 881.800 119.333 / 119.333 Intake: IV 1331.800 / 1331.800 119.333 / 119.333 HEPARIN SODIUM/DEXTROSE 25,000 190.133 / 190.133 61 / 61 units In 500 ml @ 1,150 UNITS/ HR 23 mls/hr IV .[id number] [facility] Rx #:[id number] NORMAL SALINE w/20 MEQ KCL 20 941.667 / 941.667 58.333 / 58.333 meq In 1,000 ml @ 100 mls/hr IV .Q10H [facility] Rx#:[id number] K RIDER / WTR 10 meq In 100 ml 200 / 200 @ 100 mls/hr IV Q1H [facility] Rx#: [id number] Output: Urine 450 / 450 Other: Other Intake Source NPO # Unmeasured Voids 1 Weight 86.7 kg 86.6 kg Medications Administered Current Inpatient Medications Acetaminophen (Tylenol) 650 mg PO Q4H PRN PRN Reason: Pain or Fever Stop: 05/30/19 19:51 Aspirin (Ecotrin Ectab) 81 mg PO QAM [facility] Stop: 05/31/19 08:59 Last Admin: 05/01/19 07:50 Dose: 81 mg Documented by: Atorvastatin Calcium (Lipitor) 40 mg PO QPM [facility] Stop: 05/30/19 20:59 Last Admin: 04/30/19 21:24 Dose: 40 mg Documented by: Heparin Sodium/Dextrose (Heparin Sodium/Dextrose) 25,000 units in 500 mls @ 20 mls/hr IV .Q24H [facility]; Protocol Stop: 05/30/19 16:59 Last Titration: 05/01/19 07:13 Dose: 1,000 units/hr, 20 mls/hr Documented by: Metoprolol Tartrate (Lopressor) 25 mg PO BID [facility] Stop: 05/30/19 20:59 Last Admin: 05/01/19 07:50 Dose: 25 mg Documented by: Metoprolol Tartrate (Lopressor) 2.5 mg IV Q4 PRN PRN Reason: Blood Pressure - High Stop: 05/31/19 00:00 Nitroglycerin (Nitrostat) 0.4 mg SL UD PRN PRN Reason: Chest Pain Stop: 05/30/19 19:51 Nitroglycerin (Nitro-Bid 2%) 1 inch EXT Q6 [facility] Stop: 05/30/19 19:59 Last Admin: 05/01/19 06:21 Dose: 1 inch Documented by:
[2019-05-01 08:35] LABS: BUN Creatinine Ratio 19.6 (10-20); Calcium 8.7 mg/dl (8.5-10.1); Creatinine Clr Calc Pharmacy 51.6 ml/min; Est GFR (African American) 67.2; Est GFR (Non-African American) 57.9; Potassium 4.4 mmol/L (3.5-5.1); Troponin I 15.8 ng/ml (0-0.045)
[2019-05-01] MEDS ORDERED: FUROSEMIDE 40 MG TAB PO SCH (09:00)
[2019-05-01] MEDS ORDERED: lisinopriL 5 MG TAB PO SCH (09:00)
[2019-05-01] MEDS ORDERED: HEPARIN (PORCINE) 1000 UNIT/ML 10 ML (CATH LAB USE ONLY) ONE (09:13)
[2019-05-01] MEDS ORDERED: fentaNYL citrate 100 MCG/2 ML VIAL ONE (09:13)
[2019-05-01] MEDS ORDERED: NiCARDipine HCL INJ 2.5 MG/ML 10 ML AMP ONE (09:13)
[2019-05-01] MEDS ORDERED: MIDAZOLAM HCL 1 MG/ML 2ML VIAL ONE ×2 (09:14→10:25)
[2019-05-01] MEDS ORDERED: NITROGLYCERIN/D5W 100MCG/ML 20ML SYR ONE (09:15)
--- NOTE | 2019-05-01 09:44 | Pre Anesthesia Assessment ---
Date of Service May 01, 2019 Pre Sedation Assessment Vital Signs Temp Pulse Pulse Resp BP BP Pulse Ox 05/01/19 09:36 87 05/01/19 09:15 78 18 157/92 H 95 05/01/19 08:15 36.7 C 74 18 130/80 94 05/01/19 03:36 36.9 C 81 17 111/72 95 04/30/19 23:43 36.7 C 87 17 90/54 L 93 04/30/19 23:09 36.6 C 88 16 97/67 L 93 04/30/19 19:45 36.7 C 79 16 110/69 97 04/30/19 19:05 79 17 165/114 H 95 04/30/19 18:44 78 17 140/101 H 96 04/30/19 18:30 70 17 139/102 H 04/30/19 18:15 92 H 18 132/73 93 04/30/19 17:09 96 04/30/19 17:07 96 04/30/19 16:59 90 17 104/76 96 04/30/19 16:44 36.7 C 88 18 114/65 96 Cardiovascular RRR, no murmur, no edema Respiratory normal respiratory effort, lungs clear to auscultation Pre-Sedation Airway Assessment Smoking Status: Former smoker Hx Sleep Apnea: No Short, Thick Neck: No Thyromental Distance: > or= 3.5 Finger Breadths Oral Cavity: + WNL Mallampati Class: III ASA: ASA3 NPO Status Date of Last Intake of Fluids: 05/01/19 Time of Last Intake of Fluids: 07:00 Date of Last Intake of Solid Food: 04/30/19 Time of Last Intake of Solid Foods: 20:00 Procedure Planning Contraindications for Sedation: none Current Medications Reviewed: Yes Notes The planned sedation has been discussed with the patient. Informed Consent was obtained. I have identified the patient, determined the appropriateness of sedation and have assessed the patient immediately prior to the procedure. All medicine(s) and interventions are by my order.
--- NOTE | 2019-05-01 10:37 | Cardiac Catheterization ---
Cardiac Cath Procedure Brief Procedure Date May 01, 2019 Pre-Procedure Diagnosis Pre-Procedure Diagnosis: Non STEMI AUC Score AUC Score: 8 Post-Procedure Diagnosis Post-Procedure Diagnosis: Severe CAD Procedure(s) Performed Procedure(s) Performed: Coronary Angiography and Left Heart Cath Digital Marketing Officer Tevin Howard MD Writer Producer(s) Khoa Soni Estimated Blood Loss Estimated Blood Loss: <15cc Medication(s) Medication(s): Fentanyl (12.5 mcg IV x2), Heparin (5000 units IV), Lidocaine 1% (Local infiltration access site), Nicardipine (250 mcg intra-arterial after arterial sheath insertion) and Versed (1 mg IV x2) Preliminary Findings Codominant coronary anatomy Single-vessel culprit disease with 99% stenosis proximal left circumflex Left main Short with moderate calcification but no obstruction Left anterior descending: Type II in distribution. Gives rise to a large diagonal branch which bifurcates and parallels the left anterior descending. Within the left anterior descending there is a discrete calcified 50% narrowing in its proximal segment, a long 30 to 40% in its midportion and a focal narrowing of 50% at the juncture of the mid and apical thirds Left circumflex: Large in distribution and codominant. It gives rise to a long obtuse marginal small second obtuse marginal and turns along the AV groove to give rise to a very long posterior lateral branch. The left circumflex has a 99% subtotal stenosis in its proximal portion prior to its marginal branches Right coronary artery: Codominant and small in caliber. It gives rise to a right ventricular branch, and at the AV groove a long posterior descending artery. There is a long smooth 50% narrowing in its proximal third Left ventricular end-diastolic pressure 22-26 Recommendations Recommendations: PCI without planned CABG Specimens Specimens: None Fluids (cc crystalloids) Fluids (cc crystalloids): 84 Anesthesia Start time: 0954, stop time: 1033 Procedural Complication(s) None Right radial access attempted artery not able to be cannulated Disposition PCI same setting
--- NOTE | 2019-05-01 11:01 | Cardiac Catheterization ---
Cardiac Cath Procedure Full Procedure Date May 01, 2019 Pre-Procedure Diagnosis Pre-Procedure Diagnosis: Non STEMI AUC Score AUC Score: 8 Post-Procedure Diagnosis Post-Procedure Diagnosis: Severe CAD Procedure(s) Performed Procedure(s) Performed: Coronary Angiography and Left Heart Cath Hat Former Tevin Howard MD Hiv Prevention Specialist(s) Khoa Soni Estimated Blood Loss Estimated Blood Loss: <15cc Medication(s) Medication(s): Fentanyl (12.5 mcg IV x2), Heparin (5000 units IV), Lidocaine 1% (Local infiltration access site), Nicardipine (250 mcg intra-arterial after arterial sheath insertion) and Versed (1 mg IV x2) Summary of Findings Codominant coronary anatomy Single-vessel culprit disease with 99% stenosis proximal left circumflex Left main Short with moderate calcification but no obstruction Left anterior descending: Type II in distribution. Gives rise to a large diagonal branch which bifurcates and parallels the left anterior descending. Within the left anterior descending there is a discrete calcified 50% narrowing in its proximal segment, a long 30 to 40% in its midportion and a focal narrowing of 50% at the juncture of the mid and apical thirds Left circumflex: Large in distribution and codominant. It gives rise to a long obtuse marginal small second obtuse marginal and turns along the AV groove to give rise to a very long posterior lateral branch. The left circumflex has a 99% subtotal stenosis in its proximal portion prior to its marginal branches Right coronary artery: Codominant and small in caliber. It gives rise to a right ventricular branch, and at the AV groove a long posterior descending artery. There is a long smooth 50% narrowing in its proximal third Left ventricular end-diastolic pressure 22-26 Hemodynamics Rest Ao:: 141/78/114 Final Ao: 148/79/110 LV: 148/8/26 Recommendations Recommendations: PCI without planned CABG Specimens Specimens: None Radiation Exposure (mGy) 499 Contrast (mls) 45 Fluids (cc crystalloids) Fluids (cc crystalloids): 84 Anesthesia Start time: 0954, stop time: 1033 Procedural Complication(s) None Right radial access attempted artery not able to be cannulated Disposition PCI same setting I attest to the content of the Intraoperative Record and any orders documented therein. Any exceptions are noted below. [facility] Data: Car Chaser Cardiac Status Clinical evaluation leading to the procedure Patient is a 73-year-old female with history of prior nonischemic cardiomyopathy with return to normal LV function moderate coronary atherosclerosis by cardiac catheterization 2017 presented with 2 to 3-day history of chest pressure pain resolving on presentation. Troponins were elevated and EKG changes consistent with non-ST segment elevation myocardial infarction/recent myocardial infarction. Echocardiogram with hypokinesis inferior posterior wall with preserved LV systolic function CAD Presenation: Non STEMI Anginal Classification: CCS IV Heart Failure: No Cardiogenic Shock within 24 Hours: No Cardiac Arrest within 24 Hours: No Imaging Studies Past 6 Months: Yes Stress Studies Past 6 Months: No Standard Exercise Test: No Stress Echocardiogram: No Stress Testing w/SPECT MPI: No Cardiac CTA: No STEMI OR Non-STEMI Symptom Onset Date: 04/27/19 Thrombolytics: No Coronary Anatomy Dominant: Co-Dominant Left Main (% Stenosis): Normal (Calcified) LAD (% Stenosis): Proximal (50) and Mid (60) D1 (% Stenosis): Mid (Moderate irregularities) Circumflex (% Stenosis): Proximal (99) and Distal (Long 70 or greater) OM1 (% Stenosis): Proximal (30) and Mid (30) RCA (% Stenosis): Proximal (Long smooth 50%) and Mid (50 at acute margin) R PDA (% Stenosis): Normal Diagnostic Physicians Name: Tevin Howard MD Closure Device Percutaneous Entry Location: Radial (Attempted but unable to cannulate vessel with wire) Recommendations: PCI without planned CABG
[2019-05-01] MEDS ORDERED: CLOPIDOGREL BISULFATE 300 MG TAB ONE (11:25)
--- NOTE | 2019-05-01 11:33 | Post Anesthesia Assessment ---
Date of Service May 01, 2019 Post Sedation Assessment Vital Signs Temp Pulse Pulse Resp BP BP Pulse Ox 05/01/19 09:36 87 05/01/19 09:15 78 18 157/92 H 95 05/01/19 08:15 98.1 F 74 18 130/80 94 05/01/19 03:36 98.4 F 81 17 111/72 95 04/30/19 23:43 98.1 F 87 17 90/54 L 93 04/30/19 23:09 97.9 F 88 16 97/67 L 93 04/30/19 19:45 98.1 F 79 16 110/69 97 04/30/19 19:05 79 17 165/114 H 95 04/30/19 18:44 78 17 140/101 H 96 04/30/19 18:30 70 17 139/102 H 04/30/19 18:15 92 H 18 132/73 93 04/30/19 17:09 96 04/30/19 17:07 96 04/30/19 16:59 90 17 104/76 96 04/30/19 16:44 98.1 F 88 18 114/65 96 Recovery Score Activity: Moves 4 extremities Respiration: Deep Breath/Cough Circulation: +/-20% PreAnes Value Consciousness: Fully Awake Oxygen Saturation: O2 needed for >90% Discharge Sedation Level of Care: Fast Track Phase II Post Sedation Plan On clinical assessment, the patient appears to have tolerated the sedation without complications. Patient is recovering as anticipated. Patient will continue to be monitored by nursing and may be discharged when sedation discharge criteria are met per below protocol. Upon Completions of procedure up to 15 minutes continue every 5 minute vital signs and the P.A.R. score; then discharge to a Phase I or Fast Track to Phase II per the following guidelines: * Discharge Patient to appropriate Phase II area if PAR is 8 or greater or return to pre- procedure baseline. The post - procedure orders will be as directed. * If PAR score is less than 8 or not return to pre-procedure baseline then patient will follow Phase I monitoring till PAR is reached for Phase II. The Phase I may be done in procedure room or may call to secure a Phase I area. * If naloxone or flumazenil are used for reversal, hold in Phase I for continued monitoring from when last reversal dose was given for a minimum of 60 minutes or longer pending the nurse and/or physician discretion of patient condition before discharge to Phase II. Please call the Sedation Physician to re-evaluate and complete post-note for discharge to Phase II area. Do NOT discharge from procedure sedation or Phase 1 until post- sedation evaluation note is complete by procedure /sedation MD Sedation Discharge Instructions to be given to the patient at discharge to home.
--- NOTE | 2019-05-01 11:38 | Cardiac Catheterization ---
[facility] Data: Wash House Supervisor Cardiac Status Clinical evaluation leading to the procedure CAD Presenation: Non STEMI Anginal Classification: CCS IV Heart Failure: No Cardiogenic Shock within 24 Hours: No Cardiac Arrest within 24 Hours: No Imaging Studies Past 6 Months: Yes Stress Studies Past 6 Months: No Diagnostic Physicians Name: Anatoly Rodríguez MD Status: Elective Closure Device Percutaneous Entry Location: Radial Closure Device: Radial Band Recommendations: PCI without planned CABG PCI Indication: PCI for high risk Non-HAIDER Lesion Segment Name: Mid circumflex Culprit Artery: Yes Stenosis Prior to Rx (%): 99 Chronic Total Occlusion: No IVUS: No FFR: No Pre-Procedure AYAAN Flow: 2 Previously Treated Lesion: No Lesion Complexity: Non-High/Non-C Lesion Length (mm): 10 Thrombus Present: Yes Bifurcation Lesion: No Guidewire Across Lesion: Stenosis Post-Procedure (%): 0 Post-Procedure AYAAN Flow: 3 Devices(s) Deployed: Yes Yes Intraprocedure Events Significant Disection: No Perforation: No Cardiac Cath Procedure Full Procedure Date May 01, 2019 Pre-Procedure Diagnosis Pre-Procedure Diagnosis: Non STEMI AUC Score AUC Score: 8 Post-Procedure Diagnosis Post-Procedure Diagnosis: Severe CAD Procedure(s) Performed Procedure(s) Performed: Drug Eluting Stent Transfer Iron Operator Anatoly Rodríguez MD Color Blender(s) Khoa Soni Estimated Blood Loss Estimated Blood Loss: <15cc Medication(s) Medication(s): Clopidogrel, Fentanyl (12.5 mcg IV x2), Heparin (5000 units IV), Lidocaine 1% (Local infiltration access site), Nicardipine (250 mcg intra- arterial after arterial sheath insertion), Nitroglycerin and Versed (1 mg IV x2) Summary of Findings Indication: High risk NSTEMI Access: 6 Fr right common femoral artery Catheters: EBU 3.75 guide Findings: For full details of patient's coronary angiography please see cath report dictated by Dr. Howard. Briefly, patient found to have a severe, acute 99% proximal/mid circumflex stenosis. Decision to proceed with PCI. -- PCI -- Antithrombotic therapy: Heparin, clopidogrel Procedure: Left main cannulated with EBU 3.75 guide Human Resources Coordinator 50 wire passed across lesion into distal vessel Mid circumflex lesion predilated with 2.5 compliant balloon Dilated lesion stented with 2.75 x 15 mm [place] drug-eluting stent Stent post-dilated with 2.75 noncompliant balloon IC vasodilators administered for spasm Post procedure AYAAN 3 flow, stent well expanded with minimal residual stenosis and no apparent cardiac complications. Arterial Closure: Angio-Seal Summary: 1. Successful PCI of proximal to mid circumflex with single drug-eluting stent (2.75 x 15 mm [place]). Recommendations: To PCU for continued monitoring Loaded with clopidogrel 600 mg in lab[employer] Continue dual-antiplatelet therapy for at least 1 year Continue statin, and ASCVD risk factor modification Consult cardiac Rehab Hemodynamics Rest Ao:: 158/83/114 Final Ao: 132/66/97 LV: -- Recommendations Recommendations: PCI without planned CABG Specimens Specimens: None Radiation Exposure (mGy) 2619 Contrast (mls) 120 Fluids (cc crystalloids) Fluids (cc crystalloids): 173 Drains Drains: None Anesthesia Moderate Procedural Complication(s) None Right radial access attempted artery not able to be cannulated Disposition PCU I attest to the content of the Intraoperative Record and any orders documented therein. Any exceptions are noted below. [facility] Card Cath Procedure Codes Moderate Sedation Procedure 1: Sedation/Anesthesia: 63733 Mod Sedation by a different physician ;Init15 Min Child Age 5&Up Procedure 2: Sedation/Anesthesia: 92346 Mod Sedation by a different physician;Ea Additional 15 Minutes Stenting Procedure 1: Cardiovascular Stent Procedures: 71208 Perc transcatheter placement of intracoronary stent(s), with ang PG Care Time/CCT Total # of Minutes Spent Total Time Spent with Patient: Total time spent is greater than 50% in coordination of care (as documented) at patient's floor/unit and/or counseling patient:
[2019-05-01 13:40] LABS: Partial Thromboplastin Ratio > 5.1
[2019-05-01 13:57] LABS: Partial Thromboplastin Time > 139.0 Seconds (21.0-31.0)
--- NOTE | 2019-05-01 14:20 | Emergency Department Note ---
Entered by Zulma Christopher acting as a scribe for History of Present Illness General Chief complaint: Referred by Doctor Stated complaint: HAD HEART ATTACK ON SAT. SENT BY DR FARMER Time Seen by Provider: 04/30/19 16:47 Source: patient History of Present Illness Onset (ago): day(s) 3 Location: chest Radiation: extremity (arms) Quality: + other (referred by Dr. Farmer, Cardiology ) Associated symptoms: + chest pain Treatments prior to arrival: other (nitro) The patient is a 73 year old female who presents to the ED after being referred by Dr. Farmer, Cardiology. She notes 3 days ago, she developed chest pain which she thought was indigestion. The next day, she states her chest pain began to radiate down her arms. She notes she went to Dr. Rehman office today and she received a nitro which resolved her chest pain. She states she has a hx of a cardiac catheterization which was done by Dr. Chao, Cardiology in 2017. Home Medications Home Medications Medication Instructions Recorded Confirmed Type aspirin 81 mg PO QAM 04/30/19 04/30/19 History atorvastatin 40 mg PO QPM 04/30/19 04/30/19 History carvedilol 6.25 mg PO BID 04/30/19 04/30/19 History furosemide 40 mg PO QAM 04/30/19 04/30/19 History lisinopril 5 mg PO QAM 04/30/19 04/30/19 History nitroglycerin [Nitrostat] 0.4 mg SUBLINGUAL DIRECTED PRN 04/30/19 04/30/19 History Allergies Allergy/AdvReac Type Severity Reaction Status Date / Time No Known Allergies Allergy Unverified 11/18/16 17:01 Past Med/Surg History Medical History CAD (coronary artery disease) Cardiac cath 2017 -nonobstructive CAD CKD (chronic kidney disease), stage III Dyslipidemia Nonischemic cardiomyopathy Resolved with medical therapy Surgical History H/O cardiac catheterization History of appendectomy S/P AAA repair Family History Mother Diabetes Brother Heart disease Sister Heart disease Social History Preferred Language: Greenlandic Communication Ability: Effective Electromechanical Equipment Assembler Required: No Beliefs That Will Affect Care: None Current Living Situation: Spouse Other Information That Helps Us Care for You: No Feels Safe at Home: Yes Safety Concerns: Feels Safe At This Time Smoking Status: Former smoker Hx Alcohol Use: No Hx Substance Use: No Review of Systems See HPI for pertinent positives & negatives. and A total of 10 systems reviewed and were otherwise negative Physical Exam Vital Signs Vital Signs - 24 hr 04/30/19 16:44 04/30/19 16:59 04/30/19 17:07 Temperature 36.7 C Temperature Source Oral Pulse Rate 88 Pulse Rate [Finger] 90 Respiratory Rate 18 17 Respiratory Effort / Characteristics Non-Labored Spontaneous Respiratory Depth Normal Blood Pressure 114/65 Blood Pressure [Right Arm] 104/76 Blood Pressure Mean 81 Blood Pressure Mean [Right Arm] 85 Blood Pressure Position Sitting Pulse Oximetry 96 96 96 Oxygen Delivery Method Room Air Room Air Room Air Sepsis Recent Fever Within 48 Hours No Sepsis New/Unexplained Change in Mental Status No Sepsis Action Taken by Nursing No Action Required 04/30/19 17:09 Temperature Temperature Source Pulse Rate Pulse Rate [Finger] Respiratory Rate Respiratory Effort / Characteristics Respiratory Depth Blood Pressure Blood Pressure [Right Arm] Blood Pressure Mean Blood Pressure Mean [Right Arm] Blood Pressure Position Pulse Oximetry 96 Oxygen Delivery Method Room Air Sepsis Recent Fever Within 48 Hours Sepsis New/Unexplained Change in Mental Status Sepsis Action Taken by Nursing GENERAL: Awake, alert, well-appearing, in no acute distress HENT: Normocephalic, atraumatic. Oropharynx unremarkable. EYES: Normal conjunctiva. Sclera non-icteric. NECK: Supple. No nuchal rigidity. FROM. No JVD. RESPIRATORY: Clear to auscultation. CARDIAC: Regular rate, normal rhythm. Extremities warm and well perfused. Pulses equal. ABDOMEN: Soft, non-distended. No tenderness to palpation. No rebound or guarding. No masses. RECTAL: Deferred. MUSCULOSKELETAL: Chest examination reveals no tenderness. The back is symmetrical on inspection without obvious abnormality. There is no CVA tenderness to palpation. No joint edema. LOWER EXTREMITIES: Calves are equal size bilaterally and non-tender. No edema. No discoloration. NEURO: Normal sensorium. No sensory or motor deficits noted. SKIN: No rash or jaundice noted. Course Course 1648: Past medical records reviewed. The patient was evaluated in room A4. A complete history and physical exam was performed. 1727: Discussed the patient's case with MATEUSZ Buitrago. The patient will be evaluated for further management by Adarsh Marcus Hospitalist. Administered Medications Aspirin (Ecotrin Ectab) 81 mg PO QAM [facility] Stop: 05/31/19 08:59 Last Admin: 05/01/19 07:50 Dose: 81 mg Documented by: [id number] Atorvastatin Calcium (Lipitor) 40 mg PO QPM [facility] Stop: 05/30/19 20:59 Last Admin: 04/30/19 21:24 Dose: 40 mg Documented by: [id number] Metoprolol Tartrate (Lopressor) 25 mg PO BID [facility] Stop: 05/30/19 20:59 Last Admin: 05/01/19 07:50 Dose: 25 mg Documented by: [id number] Admin: 04/30/19 23:10 Dose: Not Given Documented by: [id number] Nitroglycerin (Nitro-Bid 2%) 1 inch EXT Q6 [facility] Stop: 05/30/19 19:59 Last Admin: 05/01/19 12:40 Dose: 1 inch Documented by: [id number] Admin: 05/01/19 06:21 Dose: 1 inch Documented by: [id number] Admin: 05/01/19 00:11 Dose: 1 inch Documented by: [id number] Admin: 04/30/19 21:31 Dose: 1 inch Documented by: [id number] Discontinued Medications Aspirin (Aspirin) 324 mg PO NOW [facility] Stop: 04/30/19 16:50 Last Admin: 04/30/19 16:54 Dose: 324 mg Documented by: [id number] Clopidogrel Bisulfate (Plavix) Confirm Administered Dose 600 mg .ROUTE .STK-MED ONE Stop: 05/01/19 11:26 Last Admin: 05/01/19 11:26 Dose: 600 mg Documented by: [id number] Fentanyl Citrate (Fentanyl Citrate) Confirm Administered Dose 100 mcg .ROUTE .STK-MED ONE Stop: 05/01/19 09:14 Last Admin: 05/01/19 11:24 Dose: 75 mcg Documented by: [id number] Heparin Sodium (Porcine) (Heparin Iv Bolus (Anthropology Department Chair Use Only)) Confirm Administered Dose 10,000 units .ROUTE .STK-MED ONE Stop: 05/01/19 09:14 Last Admin: 05/01/19 11:24 Dose: 8,000 units Documented by: [id number] Heparin Sodium/Dextrose () 1 ea IV ONE ONE; Protocol Stop: 04/30/19 17:00 Last Admin: 04/30/19 18:53 Dose: 1 ea Documented by: [id number] Heparin Sodium/Sodium Chloride (Heparin/Nss 1000 Unit/500ml Flush Bag) Confirm Administered Dose 3,000 units IV .STK-MED ONE Stop: 05/01/19 09:15 Last Admin: 05/01/19 10:29 Dose: 3,000 units Documented by: [id number] Heparin Sodium/Dextrose (Heparin Sodium/Dextrose) 25,000 units in 500 mls @ 20 mls/hr IV .Q24H [facility]ADA; Protocol Stop: 05/30/19 16:59 Last Titration: 05/01/19 15:13 Dose: 0 units/hr, 0 mls/hr Documented by: [id number] Cosigned by: [id number] Titration: 05/01/19 07:13 Dose: 1,000 units/hr, 20 mls/hr Documented by: [id number] Cosigned by: [id number] Titration: 05/01/19 04:10 Dose: 1,000 units/hr, 20 mls/hr Documented by: [id number] Cosigned by: [id number] Titration: 05/01/19 03:08 Dose: 0 units/hr, 0 mls/hr Documented by: [id number] Cosigned by: [id number] Admin: 04/30/19 18:52 Dose: 1,150 units/hr, 23 mls/hr Documented by: [id number] Cosigned by: [id number] Potassium Chloride/Sodium Chloride (Normal Saline W/20 Meq Kcl) 20 meq in 1,000 mls @ 100 mls/hr IV .Q10H [facility] Stop: 05/01/19 06:14 Last Infusion: 05/01/19 07:32 Dose: 0 mls/hr Documented by: [id number] Infusion: 05/01/19 06:49 Dose: 100 mls/hr Documented by: [id number] Admin: 04/30/19 21:24 Dose: 100 mls/hr Documented by: [id number] Potassium Chloride (K Montez / Wtr) 10 meq in 100 mls @ 100 mls/hr IV Q1H [facility] Stop: 05/01/19 02:29 Last Infusion: 05/01/19 04:30 Dose: 0 mls/hr Documented by: [id number] Admin: 05/01/19 02:40 Dose: 100 mls/hr Documented by: [id number] Infusion: 05/01/19 02:13 Dose: 100 mls/hr Documented by: [id number] Admin: 05/01/19 01:13 Dose: 100 mls/hr Documented by: [id number] Midazolam HCl (Versed) Confirm Administered Dose 2 mg .ROUTE .STK-MED ONE Stop: 05/01/19 09:15 Last Admin: 05/01/19 10:30 Dose: 2 mg Documented by: [id number] Midazolam HCl (Versed) Confirm Administered Dose 2 mg .ROUTE .STK-MED ONE Stop: 05/01/19 10:26 Last Admin: 05/01/19 11:24 Dose: 2 mg Documented by: [id number] Nicardipine HCl (Cardene) Confirm Administered Dose 25 mg .ROUTE .STK-MED ONE Stop: 05/01/19 09:14 Last Admin: 05/01/19 10:29 Dose: 25 mg Documented by: [id number] Nitroglycerin/Dextrose (Nitroglycerin/D5w 100 Mcg/Ml 20ml Syringe) Confirm Administered Dose 2,000 mcg .ROUTE .STK-MED ONE Stop: 05/01/19 09:16 Last Admin: 05/01/19 10:30 Dose: 2,000 mcg Documented by: [id number] Perflutren Lipid Microsphere (Definity) 2 ml IV ONCE ONE Stop: 05/01/19 07:07 Last Admin: 05/01/19 07:07 Dose: 2 ml Documented by: [id number] Potassium Chloride (Klor-Con M20) 40 meq PO NOW ONE Stop: 04/30/19 19:53 Last Admin: 04/30/19 21:24 Dose: 40 meq Documented by: [id number] Critical Care Time Critical Care Time: Yes Total Critical Care Time: 90 I have personally spent approximately 90 minutes of critical care time in the direct management of this patient. This includes bedside care, interpretation of diagnostic studies, and testing, discussion with consultants, patient, and family members, and other required patient management activities. This approximate 90 minutes is in excess of all separately billable procedures. Medical Decision Making Differential Diagnosis Differential diagnosis: Etiologies such as cardiac ischemia, aortic dissection, pulmonary embolism, pneumonia, pneumothorax, musculoskeletal, infections, pericarditis, myocarditis, esophageal rupture, gastrointestinal, as well as others were entertained. Medical Records Attestation: I reviewed the patient's medical records. Home Medications Current Medication List: was personally reviewed by me Laboratory Data Attestation: I reviewed the patient's lab results. Result diagrams: 05/01/19 07:36 05/01/19 07:36 Lab Results 04/30/19 04/30/19 04/30/19 Range/Units 16:55 16:55 16:55 WBC 8.95 (4.8-10.8) K/uL RBC 4.46 (4.2-5.4) M/uL Hgb 13.7 (12.0-16.0) g/dL Hct 41.3 (37-47) % MCV 92.6 (80-100) fL MCH 30.7 (25-34) pg MCHC 33.2 (32-36) g/dL RDW Std Deviation 44.1 (36.4-46.3) fL RDW Coeff of Bennie 13.1 (11.5-14.5) % Plt Count 249 (130-400) K/uL MPV 9.9 (7.4-10.4) fL Immature Gran % (Auto) 0.3 % Neut % (Auto) 66.9 % Lymph % (Auto) 20.6 % Dubois % (Auto) 10.4 % Eos % (Auto) 1.1 % Baso % (Auto) 0.7 % Immature Gran # (Auto) 0.03 H (0.00-0.02) K/uL Neut # (Auto) 5.99 (1.4-6.5) K/uL Lymph # (Auto) 1.84 (1.2-3.4) K/uL Dubois # (Auto) 0.93 H (0.11-0.59) K/uL Eos # (Auto) 0.10 (0-0.5) K/uL Baso # (Auto) 0.06 (0-0.2) K/uL PT 10.9 (9.0-12.0) Seconds INR 1.1 (0.9-1.1) APTT 37.9 H (21.0-31.0) Seconds PTT Ratio 1.4 Sodium 135 L (136-145) mmol/L Potassium 3.4 L (3.5-5.1) mmol/L Chloride 100 (98-107) mmol/L Carbon Dioxide 27 (21-32) mmol/L Anion Gap 9.0 (3-11) BUN 21 H (7-18) mg/dl Creatinine 1.23 H (0.6-1.2) mg/dl Est Cr Clr Drug Dosing Not Reportable Est GFR ( Amer) 50.4 Est GFR (Non-Af Amer) 43.5 BUN/Creatinine Ratio 17.2 (10-20) Glucose 119 H (70-99) mg/dl Calcium 9.6 (8.5-10.1) mg/dl Total Bilirubin 0.7 (0.2-1) mg/dl AST 84 H (15-37) U/L ALT 34 (12-78) U/L Alkaline Phosphatase 121 H (45-117) U/L Total Creatine Kinase 667 H (26-192) U/L CK-MB (CK-2) 37.6 H (0.5-3.6) ng/ml CK/CKMB % Calc 5.6 H (0-3.0) POC Troponin I (0-0.045) ng/ml Troponin I 15.800 H* (0-0.045) ng/ml NT-Pro-B Natriuret Pep 9780 H (0-900) pg/ml Total Protein 8.6 H (6.4-8.2) gm/dl Albumin 3.9 (3.4-5.0) gm/dl Globulin 4.7 H (2.5-4.0) gm/dl Albumin/Globulin Ratio 0.8 L (0.9-2) Lipase 78 (73-393) U/L //20 Range/Units 17:02 WBC (4.8-10.8) K/uL RBC (4.2-5.4) M/uL Hgb (12.0-16.0) g/dL Hct (37-47) % MCV (80-100) fL MCH (25-34) pg MCHC (32-36) g/dL RDW Std Deviation (36.4-46.3) fL RDW Coeff of Bennie (11.5-14.5) % Plt Count (130-400) K/uL MPV (7.4-10.4) fL Immature Gran % (Auto) % Neut % (Auto) % Lymph % (Auto) % Dubois % (Auto) % Eos % (Auto) % Baso % (Auto) % Immature Gran # (Auto) (0.00-0.02) K/uL Neut # (Auto) (1.4-6.5) K/uL Lymph # (Auto) (1.2-3.4) K/uL Dubois # (Auto) (0.11-0.59) K/uL Eos # (Auto) (0-0.5) K/uL Baso # (Auto) (0-0.2) K/uL PT (9.0-12.0) Seconds INR (0.9-1.1) APTT (21.0-31.0) Seconds PTT Ratio Sodium (136-145) mmol/L Potassium (3.5-5.1) mmol/L Chloride (98-107) mmol/L Carbon Dioxide (21-32) mmol/L Anion Gap (3-11) BUN (7-18) mg/dl Creatinine (0.6-1.2) mg/dl Est Cr Clr Drug Dosing Est GFR ( Amer) Est GFR (Non-Af Amer) BUN/Creatinine Ratio (10-20) Glucose (70-99) mg/dl Calcium (8.5-10.1) mg/dl Total Bilirubin (0.2-1) mg/dl AST (15-37) U/L ALT (12-78) U/L Alkaline Phosphatase (45-117) U/L Total Creatine Kinase (26-192) U/L CK-MB (CK-2) (0.5-3.6) ng/ml CK/CKMB % Calc (0-3.0) POC Troponin I 11.34 H (0-0.045) ng/ml Troponin I (0-0.045) ng/ml NT-Pro-B Natriuret Pep (0-900) pg/ml Total Protein (6.4-8.2) gm/dl Albumin (3.4-5.0) gm/dl Globulin (2.5-4.0) gm/dl Albumin/Globulin Ratio (0.9-2) Lipase (73-393) U/L Imaging Data Radiologist's Impression: Radiology results as stated below per my review and the radiologist's interpretation: XR chest 1V portable CLINICAL HISTORY: Atypical chest pain COMPARISON STUDY: 11/18/2016 FINDINGS: The heart is mildly enlarged. There is no failure. There is no focal pulmonary consolidation. There are no pleural effusions.[ IMPRESSION: No active disease in the chest. ACT 112: Negative or not required by law. Electronically signed by: Gianfranco Weller M.D. 04/30/2019 5:07 PM ECG Data Attestation: I personally reviewed and interpreted this ECG as follows: Indication: + chest pain Rate (beats per minute): 74 Rhythm: + normal sinus ECG [place]: + Left axis deviation ECG ST segments: + ST elevation (aVR) and + T-wave inversions (Lateral) ECG Findings: + Other (old inferior infarct, new ST depressions in the lateral leads) Additional Comments: Reverse EKG done at 1652 shows sinus rhythm with a rate of 78, PVCs, old anterolateral infarct Blood Pressure Blood Pressure Findings: Normal blood pressure Blood Pressure Disposition: further management by hospitalist LAUREN Narrative Cardiac monitoring: An order was placed for continuous cardiac monitoring. The monitor shows a rate of 70 with NS rhythm. This is a 73-year-old female who presents emergency department hypotensive with chest pain. The patient is pain-free after nitro. due to the suspected lesion the patient was given a liter of fluid. Because of her EKG changes I did discuss the case with the on-call dental office receptionist who asked that the patient be started on heparin. She does have an elevation in her troponin. Patient and family were in agreement with the treatment plan. Impression & Plan NSTEMI (non-ST elevated myocardial infarction) Discharge Plan Visit Data *Final* Discharge Date/Time: 04/30/19 19:20 Chief Complaint: Referred by Doctor Stated Complaint: HAD HEART ATTACK ON SAT. SENT BY DR FARMER ED Provider: Emiliano Brody Discharge Problem: NSTEMI (non-ST elevated myocardial infarction) Patient Disposition: Admitted As Inpatient Discharge Instructions Interventions: ED Discharge Assessment Last Done: 04/30/19 19:20 The scribe's documentation has been prepared under my direction and personally reviewed by me in its entirety. I confirm that the note above accurately reflects all work, treatment, procedures, and medical decision making performed by me.
--- NOTE | 2019-05-01 14:50 | Electrocardiogram Report ---
Test Reason : Blood Pressure : / mmHG Vent. Rate : 078 BPM Atrial Rate : 078 BPM P-R Int : 150 ms QRS Dur : 090 ms QT Int : 388 ms P-R-T Axes : -19 -30 118 degrees QTc Int : 442 ms Sinus rhythm with occasional Premature ventricular complexes Left axis deviation Possible Anterolateral infarct (cited on or before 20-NOV-2016) Abnormal ECG Confirmed by Anatoly Sanderson ([id number]) on 05/01/2019 2:50:08 PM Referred By: Mitch Rubio Confirmed By:Nato Sanderson
--- NOTE | 2019-05-01 14:59 | Electrocardiogram Report ---
Test Reason : Blood Pressure : / mmHG Vent. Rate : 082 BPM Atrial Rate : 082 BPM P-R Int : 156 ms QRS Dur : 088 ms QT Int : 380 ms P-R-T Axes : 018 -33 071 degrees QTc Int : 443 ms Normal sinus rhythm with sinus arrhythmia Left axis deviation Low voltage QRS Cannot rule out Anterior infarct (cited on or before 20-NOV-2016) Abnormal ECG When compared with ECG of 30-APR-2019 16:52, (unconfirmed) Premature ventricular complexes are no longer Present ST now depressed in Lateral leads T wave inversion less evident in Lateral leads Confirmed by Anatoly Sanderson ([id number] on 05/01/2019 2:59:36 PM Referred By: Mitch Rubio Confirmed By:Nato Sanderson
[2019-05-01] MEDS: ATORVASTATIN 40 MG TAB PO SCH (21:58)
--- NOTE | 2019-05-01 22:42 | Hospitalist Progress Note ---
Date of Service May 01, 2019 Assessment & Plan (1) NSTEMI (non-ST elevated myocardial infarction): -Patient sent to ED by outpatient automobile relocation engineer for evaluation of ACS -Cardiac cath 2017: Nonobstructive CAD -EKG shows ST depressions in the lateral leads, troponin 15.8 -Received SL nitroglycerin in cardiology office, then chest pain-free -Started on heparin drip in the ED, which was continued -S/p full dose aspirin in ED -she was given home doses of carvedilol, lisinopril, statin -proBNP 9000; does not examine to be volume overloaded -N.p.o. after midnight for cardiac cath in a.m.; if patient develops worsening chest pain or becomes unstable then urgent cardiac cath - Preliminary review of the echocardiogram this AM (05/01) reveals inferior and inferior lateral wall hypokinesis Plan for cardiac catheterization this a.m. Update s/p cardiac cath, PCI with NATALI into proximal/ mid circumflex - continue Plavix 75 mg starting tomorrow AM - coreg switched metoprolol (2) Nonischemic cardiomyopathy: -History of EF <15% that resolved with medical therapy (3) CKD (chronic kidney disease), stage III: - baseline creat runs in the low ones - creat noted to be 1.2 on admission - continue to monitor, avoid nephrotoxic agents when able (4) DVT prophylaxis: -On IV heparin drip on admission, now off - will start SCDs Admission and Anticipated Discharge Date Admission Date: April 30, 2019 Subjective Pt is lying in bed, in NAD, s/p cardiac cath and stent placement. Currently denies any chest pain, shortness of breath, dizziness, lightheadedness, abd. pain, nausea or vomiting. Review of Systems Review of Systems: All systems reviewed & are unremarkable except as noted in HPI & below Constitutional: no fever and no chills Respiratory: no cough and no dyspnea Cardiovascular: no chest pain, no palpitations and no edema Gastrointestinal: no abdominal pain, no nausea and no vomiting Physical Exam Physical Exam: Constitutional: elderly obese female lying in bed in NAD,WD/WN Eyes: PERRL, EOMI, conjunctivae normal, anicteric sclerae ENMT: external ear and nose normal, oropharynx normal Respiratory: normal respiratory effort, lungs clear to auscultation Cardiovascular: Rate/Rhythm: regular rate and regular rhythm Vessels: normal peripheral pulses Extremities: + edema (Trace edema BLE) Gastrointestinal (Abdomen): normal bowel sounds, soft, nontender, obese Musculoskeletal: extremities motor strength 5/5, moves extremities spontaneously Skin: no rashes, warm and dry, dressing applied to R wrist and R groin (after card. cath) Neurologic: PERRL, EOMI, no face palsy, no dysarthria, moves extremities spontaneously Psychiatric: A+Ox3, euthymic affect [facility] Vital Signs (Past 12 Hours) Vital Signs Temp Pulse Pulse Pulse Resp BP Pulse Ox 05/01/19 22:00 82 118/69 05/01/19 18:53 37.1 C 83 19 105/69 93 05/01/19 17:00 74 05/01/19 16:12 37.3 C 76 20 111/72 91 05/01/19 14:30 76 18 122/79 94 05/01/19 14:00 61 16 122/79 94 05/01/19 13:30 76 18 120/78 94 05/01/19 13:00 71 18 118/77 94 05/01/19 12:45 74 20 115/77 91 05/01/19 12:30 71 20 117/77 93 05/01/19 12:25 65 20 112/70 95 05/01/19 12:17 36.5 C 68 20 121/80 94 05/01/19 12:13 73 20 106/73 94 05/01/19 11:45 74 20 116/74 95 05/01/19 11:40 73 20 138/87 96 05/01/19 11:35 73 20 142/81 H 96 05/01/19 11:30 73 20 136/78 96 Laboratory Results 05/01/19 05/01/19 05/01/19 Range/Units 16:26 13:05 11:06 WBC (4.8-10.8) K/uL RBC (4.2-5.4) M/uL Hgb (12.0-16.0) g/dL Hct (37-47) % MCV (80-100) fL MCH (25-34) pg MCHC (32-36) g/dL RDW Std Deviation (36.4-46.3) fL RDW Coeff of Bennie (11.5-14.5) % Plt Count (130-400) K/uL MPV (7.4-10.4) fL APTT > 139.0 H* (21.0-31.0) Seconds PTT Ratio > 5.1 Activ Coag Time Kaolin 268 H (94-140) SECONDS Sodium (136-145) mmol/L Potassium (3.5-5.1) mmol/L Chloride (98-107) mmol/L Carbon Dioxide (21-32) mmol/L Anion Gap (3-11) BUN (7-18) mg/dl Creatinine (0.6-1.2) mg/dl Est Cr Clr Drug Dosing ml/min Est GFR ( Amer) Est GFR (Non-Af Amer) BUN/Creatinine Ratio (-20) Glucose (70-99) mg/dl POC Glucose 115 H (70-99) mg/dl Calcium (8.5-10.1) mg/dl Troponin I (0-0.045) ng/ml Triglycerides (0-150) mg/dl Cholesterol (0-200) mg/dl LDL Cholesterol, Calc mg/dl VLDL Cholesterol, Calc mg/dl HDL Cholesterol mg/dl Cholesterol/HDL Ratio 05/01/19 05/01/19 05/01/19 Range/Units 10:44 07:39 07:36 WBC (4.8-10.8) K/uL RBC (4.2-5.4) M/uL Hgb (12.0-16.0) g/dL Hct (37-47) % MCV (80-100) fL MCH (25-34) pg MCHC (32-36) g/dL RDW Std Deviation (36.4-46.3) fL RDW Coeff of Bennie (11.5-14.5) % Plt Count (130-400) K/uL MPV (7.4-10.4) fL APTT (21.0-31.0) Seconds PTT Ratio Activ Coag Time Kaolin 125 (94-140) SECONDS Sodium 137 (136-145) mmol/L Potassium 4.4 D (3.5-5.1) mmol/L Chloride 108 H (98-107) mmol/L Carbon Dioxide 23 (21-32) mmol/L Anion Gap 6.0 (3-11) BUN 19 H (7-18) mg/dl Creatinine 0.97 (0.6-1.2) mg/dl Est Cr Clr Drug Dosing 51.6 ml/min Est GFR ( Amer) 67.2 Est GFR (Non-Af Amer) 57.9 BUN/Creatinine Ratio 19.6 (10-20) Glucose 122 H (70-99) mg/dl POC Glucose 128 H (70-99) mg/dl Calcium 8.7 (8.5-10.1) mg/dl Troponin I 15.800 H* (0-0.045) ng/ml Triglycerides 123 (0-150) mg/dl Cholesterol 136 (0-200) mg/dl LDL Cholesterol, Calc 64 mg/dl VLDL Cholesterol, Calc 25 mg/dl HDL Cholesterol 47 mg/dl Cholesterol/HDL Ratio 3 05/01/19 05/01/19 Range/Units 07:36 02:15 WBC 7.21 (4.8-10.8) K/uL RBC 4.17 L (4.2-5.4) M/uL Hgb 12.7 (12.0-16.0) g/dL Hct 38.3 (37-47) % MCV 91.8 (80-100) fL MCH 30.5 (25-34) pg MCHC 33.2 (32-36) g/dL RDW Std Deviation 44.3 (36.4-46.3) fL RDW Coeff of Bennie 13.2 (11.5-14.5) % Plt Count 204 (130-400) K/uL MPV 9.8 (7.4-10.4) fL APTT 104.5 H* (21.0-31.0) Seconds PTT Ratio 3.9 Activ Coag Time Kaolin (94-140) SECONDS Sodium (136-145) mmol/L Potassium (3.5-5.1) mmol/L Chloride (98-107) mmol/L Carbon Dioxide (21-32) mmol/L Anion Gap (3-11) BUN (7-18) mg/dl Creatinine (0.6-1.2) mg/dl Est Cr Clr Drug Dosing ml/min Est GFR ( Amer) Est GFR (Non-Af Amer) BUN/Creatinine Ratio (10-20) Glucose (70-99) mg/dl POC Glucose (70-99) mg/dl Calcium (8.5-10.1) mg/dl Troponin I (0-0.045) ng/ml Triglycerides (0-150) mg/dl Cholesterol (0-200) mg/dl LDL Cholesterol, Calc mg/dl VLDL Cholesterol, Calc mg/dl HDL Cholesterol mg/dl Cholesterol/HDL Ratio Medications Administered Current Inpatient Medications Acetaminophen (Tylenol) 650 mg PO Q4H PRN PRN Reason: Pain or Fever Stop: 05/30/19 19:51 Aspirin ([facility]rin E[facility]ab) [facility] [place] Stop: 05/31/19 08:59 Last Admin: 05/01/19 07:50 Dose: 81 mg Documented by: Atorvastatin Calcium (Lipitor) 40 mg PO QPM [facility] Stop: 05/30/19 20:59 Last Admin: 05/01/19 21:58 Dose: 40 mg Documented by: Clopidogrel [facility]ate (Plavix) [facility] [place] Stop: 06/01/19 08:59 Metoprolol Tartrate (Lopressor) 25 mg PO BID [facility] Stop: 05/30/19 20:59 Last Admin: 05/01/19 21:58 Dose: 25 mg Documented by: Metoprolol Tartrate (Lopressor) 2.5 mg IV Q4 PRN PRN Reason: Blood Pressure - High Stop: 05/31/19 00:00 Nitroglycerin (Nitrostat) 0.4 mg SL UD PRN PRN Reason: Chest Pain Stop: 05/30/19 19:51 Nitroglycerin (Nitro-Bid 2%) 1 inch EXT Q6 [facility] Stop: 05/30/19 19:59 Last Admin: 05/01/19 18:14 Dose: 1 inch Documented by:
[2019-05-02] MEDS: NITROGLYCERIN 2% OINTMENT 30GM TUBE EXT SCH ×2 (06:19→12:35)
[2019-05-02] MEDS: METOPROLOL TARTRATE 25 MG TAB PO SCH (08:17)
[2019-05-02] MEDS: ASPIRIN 81 MG ECTAB PO SCH (08:17)
[2019-05-02 09:00] LABS: Hematocrit (blood only) 38.4 % (37-47); Hemoglobin 12.7 g/dL (12.0-16.0); Mean Corpuscular Hemoglobin 30.6 pg (25-34); Mean Corpuscular Hgb Conc 33.1 g/dL (32-36); Mean Corpuscular Volume 92.5 fL (80-100); Mean Platelet Volume 10.4 fL (7.4-10.4); Platelet Count 196 K/uL (130-400); RDW Coefficient of Variation 13.3 % (11.5-14.5); Red Blood Count 4.15 M/uL (4.2-5.4); White Blood Count 5.71 K/uL (4.8-10.8)
[2019-05-02] MEDS ORDERED: CLOPIDOGREL BISULFATE 75 MG TAB PO SCH (09:00)
[2019-05-02 09:10] LABS: Partial Thromboplastin Ratio 1.3; Partial Thromboplastin Time 36.2 Seconds (21.0-31.0)
[2019-05-02 09:25] LABS: BUN Creatinine Ratio 15.9 (10-20); Calcium 9.4 mg/dl (8.5-10.1); Creatinine Clr Calc Pharmacy 51.6 ml/min; Est GFR (African American) 67.5; Est GFR (Non-African American) 58.3
--- NOTE | 2019-05-02 11:48 | Medical Student Progress Note ---
Date of Service May 02, 2019 Assessment & Plan (1) NSTEMI (non-ST elevated myocardial infarction): Patient to continue Aspirin and Plavix daily and adherence reviewed. Will transition patient from Metoprolol 25mg twice a day to Metoprolol Succinate 50mg daily. Will transition patient from Atorvastatin 40mg to Rosuvastatin 20mg daily due to muscle aches. Patient advised to start an over the counter Co-enzyme Q10 200mg supplement daily to help relieve muscle aches. Patient will be discharged with prescription for sublingual Nitroglycerine tabs, and instructed on use. Patient agreeable to cardiac rehab closer to her home. She prefers rehab at [facility] or [facility]. From a cardiac standpoint- patient okay for discharge home this afternoon. Will follow up with patient in the office 2-4 weeks following discharge, our office will arrange. (2) CAD (coronary artery disease): As above Supervising Attestation Patient seen and examined with Ana WHITTINGTON-marleny. Agree with findings and assessment as above. See separate progress note. Subjective Patient seen and examined while resting in chair. She states that she feels well this morning and is hopeful in going home today because it is her birthday. She has been steadily ambulating in the hallway without assistance. For exercise she feels that when she returns home she will be able to walk her dog, Stanley. Denies any problems with chest pain, palpitations, shortness of breath, lightheadedness, dizziness, or syncope. Patient denies any swelling, numbness, or tingling in the right lower extremity groin cath site. Review of Systems Review of Systems: All systems reviewed & are unremarkable except as noted in HPI & below Physical Exam Physical Exam: General: Awake, alert and oriented x 3. No acute distress. HEENT: Normocephalic, atraumatic. Pupils equal, round and reactive to light and accommodation. Extraocular muscles are intact. Anicteric sclera. Moist mucous membranes. Neck: No JVD. No bruit. Cardiovascular: Regular. Positive S-4. Normal S-1 and S-2. No S-3. No murmurs or rubs. Pulmonary: Clear to auscultation B/L. No rales, rhonchi or wheezing Abdomen: Bowel sounds x 4, soft. No rebound, guarding or tenderness. No organomegaly. Extremities: No clubbing, cyanosis or edema. +2 pedal pulses bilaterally. Skin: Warm and dry. Results & Data ([facility]) Vital Signs (Past 12 Hours) Vital Signs Temp Pulse Pulse Pulse Resp BP BP 05/02/19 11:12 36.9 C 88 16 104/63 05/02/19 07:15 77 05/02/19 07:00 36.9 C 95 H 18 106/67 05/02/19 03:53 36.4 C L 81 18 101/63 05/02/19 00:22 36.7 C 87 18 111/70 Pulse Ox 05/02/19 11:12 95 05/02/19 07:15 05/02/19 07:00 92 05/02/19 03:53 93 05/02/19 00:22 92
--- NOTE | 2019-05-02 12:15 | Cardiology Progress Note ---
Date of Service May 02, 2019 Assessment & Plan (1) NSTEMI (non-ST elevated myocardial infarction): Status post successful PCI to circumflex with 99% stenosis. Started on appropriate dual antiplatelet therapy with aspirin and Plavix, will continue. Absolute need for uninterrupted therapy was reviewed with the patient. Would DC home on metoprolol succinate 50 mg p.o. daily and sublingual nitroglycerin as needed. My office will arrange outpatient cardiac rehab as well as cardiology follow-up in 2 to 4 weeks. Given signs and symptoms to watch for with groin status post PCI. Okay to DC home from a cardiac standpoint. (2) CAD (coronary artery disease): hx of nonobstructive disease see above (3) Dyslipidemia: Patient has had muscle aches with atorvastatin in the past. Absolute need for statin therapy reviewed with her. Would DC home on rosuvastatin 20 mg daily along with [id number] coenzyme Q 10 200 mg daily. This was reviewed with the patient and she is familiar with co-Q10 and will take as recommended. Subjective Patient seen and examined out of bed in chair. States that she feels well. Ambulated in the hallway in her room without issue and has not had recurrences of chest pain. She denies any shortness of breath, palpitations, lightheadedness, dizziness or syncope. She is not having any discomfort at her groin site. Telemetry reviewed: Normal sinus rhythm without arrhythmia or significant ectopy. Review of Systems Review of Systems: All systems reviewed & are unremarkable except as noted in HPI & below Physical Exam Physical Exam: General: Awake, alert and oriented x 3. No acute distress. HEENT: Normocephalic, atraumatic. Pupils equal, round and reactive to light and accommodation. Extraocular muscles are intact. Anicteric sclera. Moist mucous membranes. Neck: No JVD. No bruit. Cardiovascular: Regular. Positive S-4. Normal S-1 and S-2. No S-3. No murmurs or rubs. Pulmonary: Clear to auscultation B/L. No rales, rhonchi or wheezing Abdomen: Bowel sounds x 4, soft. No rebound, guarding or tenderness. No organomegaly. Extremities: No clubbing, cyanosis or edema. +2 pedal pulses bilaterally. Skin: Warm and dry. Results & Data Vital Signs (Past 12 Hours) Vital Signs Temp Pulse Pulse Pulse Resp BP BP 05/02/19 11:12 36.9 C 88 16 104/63 05/02/19 07:15 77 05/02/19 07:00 36.9 C 95 H 18 106/67 05/02/19 03:53 36.4 C L 81 18 101/63 05/02/19 00:22 36.7 C 87 18 111/70 Pulse Ox 05/02/19 11:12 95 05/02/19 07:15 05/02/19 07:00 92 05/02/19 03:53 93 05/02/19 00:22 92
--- NOTE | 2019-05-02 13:36 | Discharge Summary ---
Date of Service May 02, 2019 Admission HPI Per Admitting Provider 73-year-old female who presents the ED for evaluation of chest pain. Patient reports that 4 days ago, she developed a sudden onset of a severe pressure-like chest pain. She reports the pain radiated into her jaw and down both of her arms. She rates the pain as a number 6 out of 10 at its worst. Symptoms continue to wax and wane over the past 4 days. Patient took one sublingual nitroglycerin at home 2 days ago and reports that resolved her pain for most of the day however the pain did return. She had associated shortness of breath and nausea. Denies lightheadedness, dizziness, diaphoresis, syncopal event. Patient was seen in the cardiology clinic today and found to have ST depressions in lateral leads. She continued to have chest pain and was given a sublingual nitroglycerin with resolution of her pain. She was then referred to the ER for further evaluation. Patient reports she otherwise been feeling well recently. Has been tolerating her activities of daily living at baseline. Noted some worsening lower extremity edema a couple of days ago however that has since resolved. Denies orthopnea. Has had a recent 10 pound intentional weight loss. Denies any other recent illnesses, fevers, chills. No abdominal pain, vomiting, diarrhea. She denies any urinary symptoms. In the ED, troponin is 15.8, EKG shows ST depressions in the lateral leads. Patient is chest pain-free at the time my exam. She is hemodynamically stable. She was given a full dose aspirin and started on a heparin drip. Admission Exam Per Admitting Provider Constitutional: WD/WN, vitals as above Eyes: PERRL, conjunctivae normal, anicteric sclerae ENMT: external ear and nose normal, oropharynx normal Respiratory: normal respiratory effort, lungs clear to auscultation Cardiovascular: Rate/Rhythm: regular rate and regular rhythm Vessels: normal peripheral pulses Extremities: + edema (Trace edema BLE) Gastrointestinal (Abdomen): normal bowel sounds, soft, nontender, no hepatosplenomegaly Musculoskeletal: no cyanosis or clubbing, extremities motor strength 5/5 Skin: no rashes, warm and dry Neurologic: PERRL, EOMI, accommodation nl, no face palsy, no dysarthria Psychiatric: A+Ox3, euthymic affect Principal Diagnosis NSTEMI S/p cardiac cath, PCI with NATALI into proximal/ mid circumflex Discharge Exam Constitutional: elderly obese female lying in bed in NAD,WD/WN Eyes: PERRL, EOMI, conjunctivae normal, anicteric sclerae ENMT: external ear and nose normal, oropharynx normal Respiratory: normal respiratory effort, lungs clear to auscultation Cardiovascular: Rate/Rhythm: regular rate and regular rhythm Vessels: normal peripheral pulses, no LE edema b/l Gastrointestinal (Abdomen): normal bowel sounds, soft, nontender, obese Musculoskeletal: extremities motor strength 5/5, moves extremities spontaneously Skin: no rashes, warm and dry, dressing applied R groin (after card. cath), R wrist ecchymosis, no edema (after card. cath) Neurologic: PERRL, EOMI, no face palsy, no dysarthria, moves extremities spontaneously Psychiatric: A+Ox3, euthymic affect Discharge Data Allergies Allergy/AdvReac Type Severity Reaction Status Date / Time No Known Allergies Allergy Unverified 11/18/16 17:01 Consultations 04/30/19 17:39 ED Decision to Admit Stat 04/30/19 19:52 Consult Cardiology Routine Procedures Performed Operation Date: 05/01/19 09:30 Actual Procedures s Cineradiography w/Routine Exam - Nikita Rodríguez MD p Cath, Left with Cors and Vent - Nikita Rodríguez MD s Drug Eluting Stent SGl Vessel - Nikita Rodríguez MD Ordered Studies 05/01/19 09:16 CL Cath Imgs for PACS use only Routine Hospital Course (1) NSTEMI (non-ST elevated myocardial infarction): -Patient sent to ED by outpatient model photographers' for evaluation of ACS -Cardiac cath 2017: Nonobstructive CAD -EKG showed ST depressions in the lateral leads, troponin 15.8 -Received SL nitroglycerin in cardiology office, then chest pain-free -Started on heparin drip in the ED, which was continued -S/p full dose aspirin in ED -she was given home doses of carvedilol, lisinopril, statin -Echocardiogram AM (05/01) reveals inferior and inferior lateral wall hypokinesis, EF 45 to 50%, normal LV size with mild conc. LVH, grade 1 diastolic dysfunction - Now s/p cardiac cath, PCI with NATALI into proximal/ mid circumflex (with 99% stenosis), (on 05/01/2019) - continue Plavix 75 mg and ASA 81 daily - coreg switched metoprolol succinate 50 mg daily - atorvastatin switched to rosuvastatin 20 mg daily, pt can also use Co Q10, 200 mg daily to help with muscle ache - hold lasix and lisinopril for now, d/t lower BP - pt will check BP at home and at PCP's office so these can be then restarted (uptitrated) - pt was instructed to take lasix as needed, if her weight increases (2-4 lbs overnight or 5+lbs over week) - Cardiology follow up in 2-4 weeks, cardiac rehab will also be arranged by cardiology office (2) Dyslipidemia: (3) CAD (coronary artery disease): (4) Nonischemic cardiomyopathy: -History of EF <15% that resolved with medical therapy (5) CKD (chronic kidney disease), stage III: - baseline creat runs in the low ones - creat noted to be 1.2 on admission, currently less than 1 - continue to monitor, avoid nephrotoxic agents when able Total Time Total Time Spent Total Time Spent (In Minutes): 40 Total Time Includes: Examination of the Patient, Discharge Planning, Medication Reconciliation and Communication With Other Providers Discharge Plan Discharge Items Patient Disposition: Home - Self-Care Reason For Visit: NSTEMI Discharge Diagnosis: NSTEMI S/p cardiac cath, PCI with NATALI into proximal/ mid circumflex Activity: As commented below Non-emergency contact: Primary Care Provider and Director Of Child Welfare Services Call non-emergency contact if: you have any medication questions and your symptoms worsen Follow-up/Referrals: Kimani Sanford MD [Primary Care Provider] - Diet: Heart Healthy Addtl Attending Provider Instructions: Follow up with primary care doctor in 1 week. Start taking Plavix in addition to Aspirin daily. Stop taking Carvedilol (Coreg) and start taking Metoprolol succinate instead. Stop taking Atorvastatin and start taking Rosuvastatin instead. You can take Coenzyme Q10, 200mg daily. This you can obtain [id number]. Do not take your lisinopril or furosemide at this time. Monitor your blood pressure at home and keep a log of these numbers. Bring the log to your primary care doctor appointment and/or model photographers'. Then your medications can be further adjusted. Weigh yourself daily every morning. If you gain 2-4 pounds overnight or 5 pounds over a week, take your furosemide and notify a health care provider. Recommend rest and only light activity in next couple of weeks. You will follow up with cardiology in 2-4 weeks and cardiac rehabilitation will also be set up for you. Please read instructions below in detail: Home Care: * Take your medications exactly as directed. Don't skip doses. * Remember that recovery after a heart attack takes time. Plan to rest for at lease 4-8 weeks while you recover. Then return to normal activity when your doctor says it's okay. * Ask your doctor about joining a heart rehabilitation program. * Tell your doctor if you are feeling depressed. Feelings of sadness are common after a heart attack, but it is important that you speak to someone if you are feeling overwhelmed by these feelings. * If you are having chest pain, call 911 for an ambulance. Do NOT drive yourself to the hospital. * Ask your family members to learn CPR. * Learn to take your own blood pressure and pulse. Keep a record of your results. Ask your doctor when you should seek emergency medical attention. He or she will tell you which blood pressure reading is dangerous. Lifestyle Changes: * Maintain a healthy weight. Get help to lose any extra pounds. * Cut back on salt. * Limit canned, dried, packaged, and fast foods. * Don't add salt to your food. * Season foods with herbs instead of salt when you cook. * Break the smoking habit. Enroll in a stop-smoking program to improve your chances of success. * Limit fatty foods. * Ask your doctor about having your lipid levels checked regularly. * Build up your activity according to your doctor's recommendation. * Ask your doctor when it's okay to resume sexual activity. * Tell your doctor about any erectile dysfunction (ED) medication you are ta eusebia. Some ED medications are not safe if you take certain heart medications. * Try to manage stress. Follow Up: It is important for you to keep your follow up appointments with your medical provider. Pending Studies at Discharge: No Stand-Alone Forms: [employer] Smoking Cessation Medications and DC Order Prescriptions: New clopidogrel 75 mg Tablet 75 mg PO QAM 30 Days Qty: 30 RF: 0 metoprolol succinate 50 mg tablet extended release 24 hr 50 mg PO DAILY Qty: 20 RF: 0 rosuvastatin 20 mg tablet 20 mg PO DAILY Qty: 30 RF: 0 Continued aspirin 81 mg Tablet,Delayed Release (Dr/Ec) 81 mg PO QAM RF: 0 nitroglycerin [Nitrostat] 0.4 mg Tablet, Sublingual 0.4 mg sublingual DIRECTED PRN (Reason: Chest Pain) RF: 0 Discontinued furosemide 40 mg tablet 40 mg PO QAM RF: 0 atorvastatin 40 mg tablet 40 mg PO QPM RF: 0 carvedilol 6.25 mg tablet 6.25 mg PO BID RF: 0 lisinopril 5 mg tablet 5 mg PO QAM RF: 0 Discharge Orders: Discharge Order (Routine); Ordered 05/02/19 Ordered By: Ian Martinez Admission Data Admit Date/Time: 04/30/19 17:41 Attending Provider: Ian Martinez Admit Provider: Eladio Valente Primary Care Provider: Kimani Sanford Other Providers: Eladio Valente ; Tevin Howard Other Interventions: Discharge Summary Assessment (RN) Last Done: 05/02/19 12:39
--- NOTE | 2019-05-02 19:00 | Electrocardiogram Report ---
Test Reason : Blood Pressure : / mmHG Vent. Rate : 080 BPM Atrial Rate : 080 BPM P-R Int : 138 ms QRS Dur : 086 ms QT Int : 386 ms P-R-T Axes : 027 -30 087 degrees QTc Int : 445 ms Sinus rhythm with Premature atrial complexes Left axis deviation Cannot rule out Inferior infarct (cited on or before 30-APR-2019) Abnormal ECG When compared with ECG of 01-MAY-2019 07:15, Premature atrial complexes are now Present Confirmed by Anatoly Sanderson ([id number]) on 05/02/2019 6:59:57 PM Referred By: Mitch Rubio Confirmed By:Nato Sanderson
== END 2019-05-02 14:09 | disposition home or self-care (01) | DRG 247 ==
LOC: ED 16:43 → SUATTDRO 17:41 → 2S 17:41